=== PATIENT | female | born 1955 | race Caucasian/White ===

== ENCOUNTER 2016-12-24 09:59 | Emergency (ER) | payer OTHER ==
[~2016-12-24] VITALS: Ht 154.9 cm; Wt 72.0 kg
[~2016-12-24 09:59] MED LIST: ABILIFY15 MG PO; ABILIFY5 MG OR; ACCUPRIL5 MG OR; ADVIL200 MG OR; ALAVERT10 MG OR; ASMANEX 30220 MCG IN; ASPIRIN EC81 MG PO; ASPIRIN LOW DOS81 M2 PO; ASPIRIN325 MG PO; ATROVENT I0.5 MG/VIA IN; AZITHROMYCIN500 MG PO; CELEBREX100 M1 PO; CELEBREX200 MG PO; CELEXA20 M1 PO; CIPROFLOXACN500 MG PO; CITALOPRAM20 MG PO; COMBIVENT IN; CRESTOR10 MG PO; DARVOCET-N100 MG OR; DETROL LA4 MG PO; DETROL2 MG PO; DOXYCYCL HYC100 MG PO; DUONEB IN; DURA-NEB2000 MG; EFFEXOR XR150 MG PO; FLAGYL 500500 MG/100 PO; GUAIFENESIN400 MG OR; LATANOPROST0.005 % OU; LEVOTHYROXIN100 MCG PO; LEXAPRO20 MG PO; LORTAB 5 OR; LORTAB 7.57.5 MG PO; MOTRIN800 MG OR; MULTIVITAMI1 PO; NEXIUM40 M1 PO; NICOTINE T21 MG/PATC TD; NORCO1 TA1 PO; NYSTATIN100000 M4 TOP; OXYBUTYNIN5 MG PO; PRAVACHOL20 MG PO; PRAVASTATIN20 MG PO; PREDNISONE50 MG PO; PRILOSEC40 MG PO; PROAIR HFA IN; PROVENTIL IN; PROVENTIL0.083 % IN; REMERON7.5 MG PO; RESTORIL15 M1 PO; SPIRIVA IN; SYMBICORT1 AE1 IN; TUSSIONEX1 ML OR; ULTRAM50 M1 OR; ULTRAM50 MG OR; VITAMIN D5000 UNIT PO; ZITHROMAX250 MG OR
[2016-12-24] MEDS ORDERED: ALBUTEROL SUL0.083 % IN (10:29)
[2016-12-24 10:30] LABS: HEMATOCRIT 44.1 % (37.0-47.0); HEMOGLOBIN 15.3 g/dl (12.0-16.0); IMMATURE GRANULOCYTES 0.3 % (0.0-1.0); MEAN CELL VOLUME 92.3 fL CALC (80.0-100.0); MEAN CORPUSCULAR HGB CONC 34.7 g/L CALC (32.0-36.0); NEUT# 2.97 thou/uL (2.00-7.15); RED BLOOD COUNT 4.78 mill/uL (4.20-5.60); RED CELL DISTRI WIDTH 14.9 % (11.5-15.5)
[2016-12-24] MEDS ORDERED: ABILIFY5 MG PO (10:31)
[2016-12-24] MEDS ORDERED: RANITIDINE150 M1 PO (10:34)
[2016-12-24] MEDS ORDERED: TAMAZAPAM PO (10:36)
[2016-12-24] MEDS ORDERED: ATORVASTATIN CA80 MG PO (10:38)
[2016-12-24 10:51] LABS: ALBUMIN 4.1 g/dL (3.2-5.0); ALKALINE PHOSPHATASE 92 u/l (38-126); AMYLASE 49 u/l (30-110); ANION GAP 12 (6-22 (CALC)); BILIRUBIN, TOTAL 0.9 mg/dL (0.0-1.4); BUN 12 mg/dL (7-17); BUN/CREATININE RATIO 13 (12-20 (CALC)); CALCIUM 9.4 mg/dL (8.4-10.2); CARBON DIOXIDE 29 mmol/l (22-30); CHLORIDE 101 mmol/l (95-108); CREATININE 0.9 mg/dL (0.5-1.0); GFR > 60 ML/MIN (>=60 (CALC)); GFR FOR AFR.AMER. > 60 ML/MIN (>=60 (CALC)); GLUCOSE 123 mg/dL (65-105); LIPASE 109 u/l (23-300); POTASSIUM 3.8 mmol/l (3.5-5.1); SGOT/AST 24 u/l (14-36); SGPT/ALT 38 u/l (9-52); SODIUM 137 mmol/l (137-146); TOTAL PROTEIN 6.8 g/dL (6.3-8.2)
[2016-12-24 11:03] LABS: MYOGLOBIN 25 ng/mL (0 - 62)
[2016-12-24 12:39] LABS: URINE BILIRUBIN - DIPSTICK NEGATIVE (NEGATIVE); URINE BLOOD DIPSTICK TRACE-INTACT (NEGATIVE); URINE CLARITY CLEAR; URINE COLOR YELLOW; URINE GLUCOSE - DIPSTICK NEGATIVE (NEGATIVE); URINE KETONE NEGATIVE (NEGATIVE); URINE LEUK ESTERASE NEGATIVE (NEGATIVE); URINE NITRITE - DIPSTICK NEGATIVE (Negative); URINE PH 5.5 (4.5-8.0); URINE PROTEIN - DIPSTICK NEGATIVE (NEG-TRACE); URINE SPECIFIC GRAVITY 1.015; URINE UROBILINOGEN - DIPSTICK 0.2 E.U./dL (0.2)
[2016-12-24] MEDS ORDERED: ZITHROMAX250 MG PO (14:49)
[2016-12-24] MEDS ORDERED: MEDDOSEPAK PO (14:49)
[2016-12-24 15:41] VITALS: BP 103/66
== END 2016-12-24 15:10 | disposition home or self-care (01) | DRG 192 ==
LOC: ED 09:59
PROVIDERS: Emergency Medicine
DX: J44.1 Chronic obstructive pulmonary disease with (acute) exacerbation (principal); I10 Essential (primary) hypertension; F32.9 Major depressive disorder, single episode, unspecified; F41.9 Anxiety disorder, unspecified; M19.90 Unspecified osteoarthritis, unspecified site; E03.9 Hypothyroidism, unspecified; J45.909 Unspecified asthma, uncomplicated; F17.210 Nicotine dependence, cigarettes, uncomplicated; R07.9 Chest pain, unspecified; R06.02 Shortness of breath; R05 Cough

== ENCOUNTER 2018-03-28 08:36 | Emergency (ER) | payer MEDICAID ==
[~2018-03-28] VITALS: Ht 154.9 cm; Wt 64.0 kg
[~2018-03-28 08:36] MED LIST changes: +ABILIFY5 MG PO; +ALBUTEROL SUL0.083 % IN; +ATORVASTATIN CA80 MG PO; +MEDDOSEPAK PO; +RANITIDINE150 M1 PO; +TAMAZAPAM PO; +ZITHROMAX250 MG PO
[2018-03-28 09:15] LABS: HEMATOCRIT 39.7 % (37.0-47.0); IMMATURE GRANULOCYTES 0.2 % (0.0-5.0); MEAN CELL VOLUME 91.7 fL CALC (80.0-100.0); MEAN CORPUSCULAR HGB 29.3 pG CALC (26.0-32.0); NEUT# 3.14 thou/uL (2.00-7.15); RED BLOOD COUNT 4.33 mill/uL (4.20-5.60); RED CELL DISTRI WIDTH 13.4 % (11.5-15.5)
[2018-03-28 09:16] LABS: HEMOGLOBIN 12.7 g/dl (12.0-16.0)
[2018-03-28] MEDS ORDERED: LASIX 80 MG TAB80 M1 PO (09:25)
[2018-03-28] MEDS ORDERED: MS CONTIN30 MG PO (09:26)
[2018-03-28] MEDS ORDERED: POTASSIUM CHLO20 ME2 PO (09:26)
[2018-03-28] MEDS ORDERED: DILAUDID8 MG PO (09:26)
[2018-03-28 09:31] LABS: ALBUMIN 4.7 g/dL (3.2-5.0); ALKALINE PHOSPHATASE 102 u/l (38-126); ANION GAP 14 (6-22 (CALC)); BILIRUBIN, TOTAL 0.5 mg/dL (0.0-1.4); BUN 17 mg/dL (7-17); BUN/CREATININE RATIO 14 (12-20 (CALC)); CARBON DIOXIDE 31 mmol/l (22-30); CHLORIDE 102 mmol/l (95-108); CREATININE 1.2 mg/dL (0.5-1.0); GFR 46 ML/MIN (>=60 (CALC)); GFR FOR AFR.AMER. 55 ML/MIN (>=60 (CALC)); POTASSIUM 4.1 mmol/l (3.5-5.1); SGOT/AST 42 u/l (14-36); SODIUM 142 mmol/l (137-146); TOTAL PROTEIN 7.4 g/dL (6.3-8.2)
[2018-03-28 09:32] LABS: INTERNATIONAL NORMALIZED RATIO 0.9 RATIO (0.7-1.3); PROTHROMBIN TIME 9.7 SECONDS (9.0-12.5)
[2018-03-28] MEDS ORDERED: ZITHROMAX250 MG PO (09:48)
[2018-03-28] MEDS ORDERED: MEDDOSEPAK PO (09:48)
[2018-03-28 10:22] VITALS: BP 145/77
== END 2018-03-28 10:32 | disposition home or self-care (01) ==
LOC: ED 08:36
PROVIDERS: Emergency Medicine
DX: J06.9 Acute upper respiratory infection, unspecified (principal); J44.1 Chronic obstructive pulmonary disease with (acute) exacerbation; R06.02 Shortness of breath

== ENCOUNTER 2018-04-04 18:09 | Emergency (ER) | payer OTHER ==
[~2018-04-04] VITALS: Ht 154.9 cm; Wt 75.0 kg
[~2018-04-04 18:09] MED LIST changes: +DILAUDID8 MG PO; +LASIX 80 MG TAB80 M1 PO; +MS CONTIN30 MG PO; +POTASSIUM CHLO20 ME2 PO
[2018-04-04 18:57] LABS: HEMATOCRIT 39.6 % (37.0-47.0); HEMOGLOBIN 12.8 g/dl (12.0-16.0); IMMATURE GRANULOCYTES 0.3 % (0.0-5.0); MEAN CELL VOLUME 91.7 fL CALC (80.0-100.0); MEAN CORPUSCULAR HGB 29.6 pG CALC (26.0-32.0); MEAN CORPUSCULAR HGB CONC 32.3 g/L CALC (32.0-36.0); NEUT# 3.52 thou/uL (2.00-7.15); RED BLOOD COUNT 4.32 mill/uL (4.20-5.60)
[2018-04-04 19:10] LABS: ALBUMIN 4.5 g/dL (3.2-5.0); ALKALINE PHOSPHATASE 113 u/l (38-126); ANION GAP 14 (6-22 (CALC)); BILIRUBIN, TOTAL 0.7 mg/dL (0.0-1.4); BUN 19 mg/dL (7-17); BUN/CREATININE RATIO 18 (12-20 (CALC)); CARBON DIOXIDE 31 mmol/l (22-30); CHLORIDE 98 mmol/l (95-108); CREATININE 1.1 mg/dL (0.5-1.0); GFR 51 ML/MIN (>=60 (CALC)); GFR FOR AFR.AMER. > 60 ML/MIN (>=60 (CALC)); SGOT/AST 33 u/l (14-36); SODIUM 138 mmol/l (137-146); TOTAL PROTEIN 6.7 g/dL (6.3-8.2)
[2018-04-04 19:22] LABS: MYOGLOBIN 124 ng/mL (0 - 62)
[2018-04-04] MEDS ORDERED: LEVAQUIN500 MG PO (20:08)
[2018-04-04] MEDS ORDERED: MEDDOSEPAK PO (20:08)
[2018-04-04 20:28] VITALS: BP 113/62
== END 2018-04-04 20:28 | disposition home or self-care (01) ==
LOC: ED 18:09
PROVIDERS: Emergency Medicine
DX: J44.1 Chronic obstructive pulmonary disease with (acute) exacerbation (principal); K21.9 Gastro-esophageal reflux disease without esophagitis; E03.9 Hypothyroidism, unspecified; F43.10 Post-traumatic stress disorder, unspecified; F32.9 Major depressive disorder, single episode, unspecified; F41.9 Anxiety disorder, unspecified; Z99.81 Dependence on supplemental oxygen; R06.02 Shortness of breath; R05 Cough

== ENCOUNTER 2018-05-08 13:09 | Observation (INO) | payer OTHER ==
[~2018-05-08] VITALS: Ht 154.9 cm; Wt 79.4 kg
[~2018-05-08 13:09] MED LIST changes: +LEVAQUIN500 MG PO
--- NOTE | 2018-05-08 13:09 | NUR ---
TO ROOM 9 VIA W/C. FAMILY AT BEDSIDE
[2018-05-08 13:57] LABS: IMMATURE GRANULOCYTES 0.4 % (0.0-5.0); MEAN CELL VOLUME 91.4 fL CALC (80.0-100.0); MEAN CORPUSCULAR HGB 28.3 pG CALC (26.0-32.0); MEAN CORPUSCULAR HGB CONC 30.9 g/L CALC (32.0-36.0); NEUT# 3.53 thou/uL (2.00-7.15); RED BLOOD COUNT 3.61 mill/uL (4.20-5.60); RED CELL DISTRI WIDTH 15.4 % (11.5-15.5)
--- NOTE | 2018-05-08 14:09 | NUR ---
PT RESTING IN NO ACUTE DISTRESS. VSS. PT STATES SHE IS BREATHING MUCH BETTER
[2018-05-08 14:10] LABS: HEMOGLOBIN 10.2 g/dl (12.0-16.0)
[2018-05-08 14:12] LABS: ANION GAP 13 (6-22 (CALC)); BUN 15 mg/dL (7-17); BUN/CREATININE RATIO 12 (12-20 (CALC)); CARBON DIOXIDE 30 mmol/l (22-30); CHLORIDE 102 mmol/l (95-108); CREATININE 1.2 mg/dL (0.5-1.0); GFR 46 ML/MIN (>=60 (CALC)); GFR FOR AFR.AMER. 55 ML/MIN (>=60 (CALC)); POTASSIUM 3.8 mmol/l (3.5-5.1); SODIUM 141 mmol/l (137-146)
--- NOTE | 2018-05-08 14:49 | NUR ---
PT RESTING WITH HOB ELEVATED ON O2@2LPM VIA NC. PT SITTING UP DRINKING SODA IN NO DISTRESS AT THIS TIME.VSS
--- NOTE | 2018-05-08 15:04 | NUR ---
PT MAINTAINED IN NO ACUTE DISTRESS.VSS. O2@2LPM VIA NC. DENIES CP OR SOB
--- NOTE | 2018-05-08 16:04 | NUR ---
PT IN NO DISTRESS, VSS. PT DENIES COMPLAINTS. VSS. CONTINUES ON 02@2LPM VIA [place]
--- NOTE | 2018-05-08 16:55 | NUR ---
CALLED REPORT TO MEAGHAN RAYMUNDO MS2
[2018-05-08 17:20] VITALS: BP 128/81
--- NOTE | 2018-05-08 17:33 | NUR ---
ASSESSMENT DONE . TELE IN PLACE READING SR 76 PER ED. 02 AT 2L VIA RI. SAFETY PRECAUTIONS REINFORCED AND CALL LIGHT IN REACH.
[2018-05-08 19:00] VITALS: BP 135/78
--- NOTE | 2018-05-08 19:54 | NUR ---
PT. SITTING UP IN BED WITH EXERTIONAL SOB; PT. REQUESTING NEB TX'S; WILL CALL MD FOR FURTHER ORDERS; O2 INFUSING PER NC @2LITERS/MIN PER NC; ASSESSMENT COMPLETED; PO FLUIDS OFFERED; EDEMA NOTED TO BLE AND ELEVATED ONTO PILLOW; ENCOURAGED TO CALL FOR ANY NEEDS; CALL LIGHT IS IN REACH; WILL CONTINUE TO MONITOR.
--- NOTE | 2018-05-08 20:45 | NUR ---
SPOKE TO DR. GONZALEZ AND NOTIFIED HIM OF PT'S REQUESTS FOR NEB TX'S AND OF THERE BEING NO MORE ANTIBIOTICS OR STEROIDS TO BE GIVEN ONLY ONES IN ER; NEW ORDERS RECEIVED AND TO BE CARRIED OUT;
--- NOTE | 2018-05-08 22:24 | NUR ---
PT. SITTING UP IN BED WITH O2 INFUSING PER NC; C/O RLE MATTHEWS PAIN; SWELLING UNCHANGED FROM ASSESSMENT TO BLE; APPLIED B[place] HOSE TO BLE AT THIS TIME AND ELEVATED ONTO PILLOW; PULSES PRESENT; INSTRUCTED TO CALL FOR ANY NEEDS;VOICES NO CONCERNS; CALL LIGHT IS IN REACH.
[2018-05-09 00:02] VITALS: BP 112/78
--- NOTE | 2018-05-09 00:27 | NUR ---
PT. C/O BACK PAIN ; MEDICATED WITH ORDERED DILAUDID PO PER ORDER; PT., REPORTS THAT PAIN WAS RELIEVED TO LLE AFTER BIB[place]NA HOSE PLACED; DENIES FURTHER NEEDS; CALL LIGHT IS IN REACH.
--- NOTE | 2018-05-09 03:35 | NUR ---
PT. RESTING IN BED WITH EYES CLOSED; RESP EVEN AND UNLABORED; WILL CONTINUE TO MONITOR.
[2018-05-09 04:42] VITALS: BP 118/75
[2018-05-09 04:44] LABS: HEMATOCRIT 33.6 % (37.0-47.0); HEMOGLOBIN 10.3 g/dl (12.0-16.0); IMMATURE GRANULOCYTES 0.4 % (0.0-5.0); MEAN CELL VOLUME 90.1 fL CALC (80.0-100.0); MEAN CORPUSCULAR HGB 27.6 pG CALC (26.0-32.0); MEAN CORPUSCULAR HGB CONC 30.7 g/L CALC (32.0-36.0); NEUT# 4.06 thou/uL (2.00-7.15); RED BLOOD COUNT 3.73 mill/uL (4.20-5.60)
[2018-05-09 05:17] LABS: ALBUMIN 3.7 g/dL (3.2-5.0); ALKALINE PHOSPHATASE 91 u/l (38-126); ANION GAP 15 (6-22 (CALC)); BILIRUBIN, TOTAL 0.3 mg/dL (0.0-1.4); BUN 14 mg/dL (7-17); BUN/CREATININE RATIO 14 (12-20 (CALC)); CARBON DIOXIDE 26 mmol/l (22-30); CHLORIDE 101 mmol/l (95-108); GFR 57 ML/MIN (>=60 (CALC)); GFR FOR AFR.AMER. > 60 ML/MIN (>=60 (CALC)); LIPASE 81 u/l (23-300); POTASSIUM 3.8 mmol/l (3.5-5.1); SGOT/AST 34 u/l (14-36); SODIUM 138 mmol/l (137-146); TOTAL PROTEIN 5.7 g/dL (6.3-8.2)
[2018-05-09 05:37] LABS: AMYLASE < 30 u/l (30-110)
--- NOTE | 2018-05-09 06:32 | NUR ---
PT. C/O 09/05 BACK PAIN AND MILD PAIN TO LLE; MEDICATED WITH ORDERED PO DILAUDID; WILL REASSESS; CALL LIGHT IS IN REACH; WILL CONTINUE TO MONITOR.
[2018-05-09 07:50] VITALS: BP 119/71
--- NOTE | 2018-05-09 08:35 | NUR ---
ASSESSMENT DONE .TELE IN PLACE. PT IS A&O X3. 02 2L VIA NC. 20 RAC THAT APPEARS HEALTHY. PT DENIES ANY NEEDS AT THIS TIME. SAFETY PRECAUTIONS REINFORCED AND CALL LIGHT IN REACH.
[2018-05-09 12:00] VITALS: BP 112/64
--- NOTE | 2018-05-09 12:40 | NUR ---
DR. GONZALEZ AT BEDSIDE TO ASESS PT AND DISCUSS POC. PT VERBALIZED UNDERSTANDING. PT STATED PAIN IN BACK 10/06. PT DENIES ANY OTHER NEEDS AT THIS TIME. CALL LIGHT IN REACH.
[2018-05-09 15:33] VITALS: BP 108/72
--- NOTE | 2018-05-09 16:29 | NUR ---
PT TALKING IN HER CELL PHONE. PT DENIES ANY NEEDS AT THIS TIME. CALL LIGHT IN REACH.
[2018-05-09 17:23] LABS: URINE BILIRUBIN - DIPSTICK NEGATIVE (NEGATIVE); URINE BLOOD DIPSTICK NEGATIVE (NEGATIVE); URINE COLOR YELLOW; URINE GLUCOSE - DIPSTICK NEGATIVE (NEGATIVE); URINE KETONE NEGATIVE (NEGATIVE); URINE LEUK ESTERASE NEGATIVE (Negative); URINE NITRITE - DIPSTICK NEGATIVE (Negative); URINE PROTEIN - DIPSTICK NEGATIVE (NEG-TRACE); URINE SPECIFIC GRAVITY <=1.005; URINE UROBILINOGEN - DIPSTICK 0.2 E.U./dL (0.2)
[2018-05-09 17:25] LABS: URINE CLARITY CLEAR
--- NOTE | 2018-05-09 19:52 | NUR ---
PT. C/O BACK PAIN; MEDICATED WITH ORDERED PRN PO DILAUDID; WILL REASSESS; ASSESSMENT COMPLETED; IV SITE PATENT AND SL; FLUSHES WELL; PO FLUIDS OFFERED; O2 INFUSING PER NC PER ORDER; PT. INSTRUCTED TO CALL FOR ANY NEEDS; CALL LIGHT IS IN REACH;
--- NOTE | 2018-05-09 22:05 | NUR ---
PT. SITTING UP IN BED; O2 INFUSING PER NC; PT. REQUESTS PRN RESTORIL; MEDICATED PER ORDER;
[2018-05-10] VITALS (7 sets, daily range): BP systolic 106–125; BP diastolic 60–78
--- NOTE | 2018-05-10 01:15 | NUR ---
PT. RESTING IN BED WITH EYES CLOSED; RESP EVEN AND UNLABORED; CALL LIGHT IS IN REACH.
--- NOTE | 2018-05-10 02:57 | NUR ---
PT. MEDICATED FOR BACK PAIN WITH ORDERED PRN PO DILAUDID; WILL REASSESS; PO FLUIDS OFFERED; COMMODE EMPTIED; ENCOURAGED TO CALL FOR ANY NEEDS; CALL LIGHT IS IN REACH; WILL CONTINUE TO MONITOR.
--- NOTE | 2018-05-10 05:47 | NUR ---
SCHED ABT HUNG; FRESH WATER GIVEN; DENIES NEEDS; CALL LIGHT IS IN REACH.
[2018-05-10 06:31] LABS: HEMATOCRIT 33.4 % (37.0-47.0); HEMOGLOBIN 10.5 g/dl (12.0-16.0); IMMATURE GRANULOCYTES 0.5 % (0.0-5.0); MEAN CORPUSCULAR HGB 28.6 pG CALC (26.0-32.0); MEAN CORPUSCULAR HGB CONC 31.4 g/L CALC (32.0-36.0); NEUT# 6.49 thou/uL (2.00-7.15); RED BLOOD COUNT 3.67 mill/uL (4.20-5.60); RED CELL DISTRI WIDTH 15.6 % (11.5-15.5)
[2018-05-10 06:44] LABS: ALKALINE PHOSPHATASE 91 u/l (38-126); ANION GAP 12 (6-22 (CALC)); BILIRUBIN, TOTAL 0.4 mg/dL (0.0-1.4); BUN 20 mg/dL (7-17); BUN/CREATININE RATIO 23 (12-20 (CALC)); CARBON DIOXIDE 28 mmol/l (22-30); CHLORIDE 102 mmol/l (95-108); CREATININE 0.9 mg/dL (0.5-1.0); GFR > 60 ML/MIN (>=60 (CALC)); GFR FOR AFR.AMER. > 60 ML/MIN (>=60 (CALC)); MAGNESIUM 2.3 mg/dL (1.6-2.3); SGOT/AST 29 u/l (14-36); SODIUM 137 mmol/l (137-146); TOTAL PROTEIN 6.1 g/dL (6.3-8.2)
[2018-05-10 06:47] LABS: POTASSIUM 4.6 mmol/l (3.5-5.1)
--- NOTE | 2018-05-10 08:15 | NUR ---
ASSESSMENT IS COMPLETED; IV SITE IS FREE FROM REDNESS OR EDEMA. HR IS REG, PULSES ARE STRONG X4, ABD IS SOFT WITH ACTIVE BS.BREATH SOUNDS ARE CLEAR BILATERALLY. O2 @ 2LITERS WITH NC. CONTINUE TO OSEBRVE AND MONITOR
--- NOTE | 2018-05-10 12:30 | NUR ---
PT IS RELAXING IN BED WITH NO DISTRESS NOTED. HAS SOME AUDIBLE WHEEZING ON EXERTION.
--- NOTE | 2018-05-10 16:15 | NUR ---
PT IS RELAXING IN BED WITH NO DISTRESS NOTED. IV SITE IS FREE FROM REDNESS OR EDEMA.
--- NOTE | 2018-05-10 19:12 | NUR ---
PT. SITTING UP IN BED WATCHING TV; O2 INFUSING PER NC PER ORDER; ENCOURAGED TO CALL FOR ANY NEEDS; PT. C/O BACK SANTIAGO 12/06; MEDICATED WITH ORDERED DILAUDID PO; WILL REASSESS; DENIES FURTHER NEEDS; CALL LIGHT IS IN REACH; WILL CONTINUE TO MONITOR.
--- NOTE | 2018-05-10 22:14 | NUR ---
PT. SITTING UP IN BED WATCHING TV; MEDICATED WITH ORDERED PRN RESTORIL PER PTS REQUEST; DENIES FURTHER NEEDS; CALL LIGHT IS IN REACH.
--- NOTE | 2018-05-11 02:29 | NUR ---
PT. C/O BACK PAIN ; MEDICATED WITH ORDERED DILAUDID PO; ICE CHIPS PROVIDED; COMMODE EMPTIED; PT. DENIES FURTHER NEEDS; CALL LIGHT IS IN REACH; WILL CONTINUE TO MONITOR.
--- NOTE | 2018-05-11 04:25 | NUR ---
IV SITE SLIGHTLY LEAKING WHEN FLUSHING; REMOVED AT THIS TIME; CATHETER TIP INTACT; NEW IV SITE STARTED TO LH #22 GAUGE AND AM LABS OBTAINED; COFFEE PROVIDED PER PT'S REQUEST; VOICES NO CONCERNS; CALL LIGHT IS IN REACH.
[2018-05-11 04:35] VITALS: BP 122/79
[2018-05-11 05:33] LABS: HEMATOCRIT 33.6 % (37.0-47.0); HEMOGLOBIN 10.6 g/dl (12.0-16.0); IMMATURE GRANULOCYTES 0.8 % (0.0-5.0); MEAN CELL VOLUME 90.8 fL CALC (80.0-100.0); MEAN CORPUSCULAR HGB 28.6 pG CALC (26.0-32.0); MEAN CORPUSCULAR HGB CONC 31.5 g/L CALC (32.0-36.0); NEUT# 6.48 thou/uL (2.00-7.15); RED BLOOD COUNT 3.7 mill/uL (4.20-5.60); RED CELL DISTRI WIDTH 15.7 % (11.5-15.5)
[2018-05-11 05:40] LABS: ALBUMIN 3.7 g/dL (3.2-5.0); ALKALINE PHOSPHATASE 79 u/l (38-126); ANION GAP 11 (6-22 (CALC)); BILIRUBIN, TOTAL 0.3 mg/dL (0.0-1.4); BUN 19 mg/dL (7-17); BUN/CREATININE RATIO 28 (12-20 (CALC)); CARBON DIOXIDE 26 mmol/l (22-30); CHLORIDE 104 mmol/l (95-108); CREATININE 0.7 mg/dL (0.5-1.0); GFR > 60 ML/MIN (>=60 (CALC)); GFR FOR AFR.AMER. > 60 ML/MIN (>=60 (CALC)); MAGNESIUM 2.2 mg/dL (1.6-2.3); POTASSIUM 4.2 mmol/l (3.5-5.1); SGOT/AST 26 u/l (14-36); SODIUM 137 mmol/l (137-146); TOTAL PROTEIN 5.8 g/dL (6.3-8.2)
[2018-05-11 07:25] VITALS: BP 154/91
--- NOTE | 2018-05-11 07:25 | NUR ---
ASSESSMENT IS COMPLETED: IV SITE IS FREE FROM REDNESS OR EDEMA. BREATH SOUNDS ARE DIMINSHED. HR IS REG, PULSES ARE STRONG X4, ABD IS SOFT WITH ACTIVE BS. TELE MONITOR IN PLACE. CALL HILLIARD WITHIN REACH. CONTINUE TO OBSERVE AND MONITOR.
[2018-05-11 11:08] VITALS: BP 120/58
--- NOTE | 2018-05-11 12:00 | NUR ---
PT IS RELAXING IN BED WITH NO DISTRESS NOTED. IV SITE IS FREE FROM REDNESS OR EDEMA. TELE MONITOR IN PLACE. CONTINUE TO OSBERVE AND MONITOR.
[2018-05-11] MEDS ORDERED: BUMETANIDE1 MG PO (14:12)
[2018-05-11] MEDS ORDERED: DOXYCYCL HYC100 MG PO (14:13)
--- NOTE | 2018-05-11 14:30 | NUR ---
IV FLUIDS WERE 111
--- NOTE | 2018-05-11 14:47 | NUR ---
PT RECEIVED DISCHARGE INSTRUCTIONS. IV SITE DISCONITNUED CATHETER INTACT. NO REDNESS OR EDEMA.VERBALIZED UNDERSTANDING. Discharge instructions given. Patient verbalizes understanding of same. Discharged in stable condition via Wheelchair to Home with family. All belongings sent with pt.
--- NOTE | 2018-05-11 14:50 | NUR ---
Discharge instructions given. Patient verbalizes understanding of same. Discharged in stable condition via Wheelchair to Home with family. All belongings sent with pt.
== END 2018-05-11 14:46 | disposition home or self-care (01) ==
LOC: ED 13:09 → ED-I 14:39 → ED 15:12 → MS2 15:13
PROVIDERS: Family Medicine; ADMIT Internal Medicine Nephrology; ATTEND Internal Medicine Nephrology
DX: J44.1 Chronic obstructive pulmonary disease with (acute) exacerbation (principal); I11.0 Hypertensive heart disease with heart failure; I50.31 Acute diastolic (congestive) heart failure; J96.00 Acute respiratory failure, unspecified whether with hypoxia or hypercapnia; E78.5 Hyperlipidemia, unspecified; K21.9 Gastro-esophageal reflux disease without esophagitis; E03.9 Hypothyroidism, unspecified; F43.10 Post-traumatic stress disorder, unspecified; F32.9 Major depressive disorder, single episode, unspecified; F41.9 Anxiety disorder, unspecified; F17.200 Nicotine dependence, unspecified, uncomplicated
CPT/HCPCS: G0378

== ENCOUNTER 2019-01-27 10:46 | Inpatient (IN) | payer OTHER ==
[2019-01-27] VITALS (8 sets, daily range): BP systolic 98–172; BP diastolic 67–101
[~2019-01-27] VITALS: Ht 154.9 cm; Wt 74.6 kg
[~2019-01-27 10:46] MED LIST changes: +BUMETANIDE1 MG PO
--- NOTE | 2019-01-27 10:54 | NUR ---
PT TO ROOM PER EMS
[2019-01-27 11:27] LABS: HEMATOCRIT 39.5 % (37.0-47.0); HEMOGLOBIN 11.9 g/dl (12.0-16.0); IMMATURE GRANULOCYTES 0.3 % (0.0-5.0); MEAN CELL VOLUME 86.2 fL CALC (80.0-100.0); MEAN CORPUSCULAR HGB CONC 30.1 g/L CALC (32.0-36.0); NEUT# 4.79 thou/uL (2.00-7.15); RED BLOOD COUNT 4.58 mill/uL (4.20-5.60); RED CELL DISTRI WIDTH 17.7 % (11.5-15.5)
[2019-01-27 11:36] LABS: ANION GAP 15 (6-22 (CALC)); BUN 10 mg/dL (8-23); BUN/CREATININE RATIO 11 (12-20 (CALC)); CARBON DIOXIDE 26 mmol/l (22-30); CHLORIDE 103 mmol/l (95-108); CREATININE 0.9 mg/dL (0.5-1.0); GFR > 60 ML/MIN (>=60 (CALC)); GFR FOR AFR.AMER. > 60 ML/MIN (>=60 (CALC)); SODIUM 138 mmol/l (137-146)
--- NOTE | 2019-01-27 11:50 | NUR ---
PT TOLERATING BIPAP, MONITORING DEVICES IN PLACE; IV LEVAQUIN INFUSING; PT DENIES ANY NEEDS AT THIS TIME; VSS; WILL CONTINUE TO MONITOR
--- NOTE | 2019-01-27 12:47 | NUR ---
PT MEDICATED HYPERKALEMIA PER MAR, PT TOLERATED WELL; BIPAP CONTINUED; PT DENIES ANY DISCOMFORT OR PAIN AT THIS
--- NOTE | 2019-01-27 13:30 | NUR ---
PT RESTING ON STRETCHER BIPAP IN PLACE; PT TOLERATING WELL; VSS; WILL CONTINUE TO MONITOR
--- NOTE | 2019-01-27 14:30 | NUR ---
PT RESTING ON STRETCHER; BIPAP IN PLACE; VSS; DENIES ANY NEEDS; WILL CONTINUE TO MONITOR
--- NOTE | 2019-01-27 15:25 | NUR ---
REPORT CALLED TO MEAGHAN BRIDGES
--- NOTE | 2019-01-27 15:50 | NUR ---
PT ADMITTED TO ICU BED 5 FROM ED, TRANSPORTED VIA STRETCHER, PT TRANSFERRED SELF FROM STRETCHER TO BED. PT DENIES CP. PT SOB WITH EXERTION, SA02@93% ON 02@2LPM VIA NC. LS WHEEZING THROUGHOUT. ABDOMEN DISTENDED, FIRM, NON-TENDER. LBM 01-26-19. BSX4 ACTIVE. 20G EMS@LAC/SL, NO S/S OF INFILTRATE AT SITE NOTED AT THIS TIME. PT REMAINS ON DROPLET PRECAUTIONS FOR FLU B. PT ORIENTED TO UNIT, ROOM, CALL LIGHT. WILL MONITOR.
--- NOTE | 2019-01-27 16:05 | NUR ---
Admission Note Report Given to: MEAGHAN BRIDGES Transported by: Wheelchair X Stretcher Transported with: X Nurse Transporter X Patent IV X O2 X Supervisor [employer]
--- NOTE | 2019-01-27 16:30 | NUR ---
PT DAUGHTER ARRIVED AT BEDSIDE.
--- NOTE | 2019-01-27 17:00 | NUR ---
RT AT BEDSIDE FOR TX, PLACE HUMIDIFIER.
--- NOTE | 2019-01-27 17:16 | NUR ---
DIETARY ON UNIT DINNER TRAY SET UP.
--- NOTE | 2019-01-27 18:27 | NUR ---
PT RESTING IN BED, EYES CLOSED. OFFERS NO COMPLAINTS AT THIS TIME. CALL LIGHT IN REACH. WILL MONITOR
--- NOTE | 2019-01-27 18:50 | NUR ---
REPORT RECEIVED FROM MEAGHAN BRIDGES. PT SITTING UP IN BED COLORING; ALERT AND ORIENTED. C/O SOME MILD PAIN TO ANTERIOR LEFT MATTHEWS AND MID BACK. RESPIRATIONS EVEN AND UNLABORED ON OXYGEN 2L VIA NC; WHEEZING THROUGOUT LUNGS. PT STATES THAT HER BREATHING IS MUCH BETTER. PLAN OF CARE REVIEWED. PT ENCOURAGED TO VERBALIZE CONCERNS. STATES UNDERSTANDING. SAFETY MEASURES IN PLACE. CALL LIGHT WITHIN REACH.
--- NOTE | 2019-01-27 21:30 | NUR ---
SPUTUM SPECIMEN OBTAINED AND SENT TO LAB. PT TOOK PM MEDICATIONS WITHOUT DIFFICULY INCLUDING RESTORIL. ASKING FOR COKE. NO OTHER REQUESTS OR CONCERNS AT THIS TIME.
[2019-01-28] VITALS (13 sets, daily range): BP systolic 92–143; BP diastolic 63–92
--- NOTE | 2019-01-28 00:17 | NUR ---
PT ASLEEP AT THIS TIME WITH NO SIGNS OF DISTRESS. RESPIRATIONS EVEN AND UNLABORED ON OXYGEN. REMAINS ON DROPLET PRECAUTIONS FOR FLU. REPOSITIONING SELF IN BED AND USES CALL LIGHT PRN FOR ASSISTANCE. CALL LIGHT WITHIN REACH.
--- NOTE | 2019-01-28 02:58 | NUR ---
NO CHANGES IN CONDITION THROUGHOUT THE NIGHT. VSS.
--- NOTE | 2019-01-28 05:40 | NUR ---
PURWIK CATHETER UNSUCCESSFUL; LINENS SOILED WITH URINE; FULL LINEN CHANGE AND PT ASSITED WITH PARTIAL BATH. UP TO BS TO VOID 900ML OF CLEAR YELLOW URINE; SPECIMEN SENT TO LAB. PT SOB WITH MODERATE WHEEZING ON EXERTION. ONLY REQUEST AT THIS TIME IS FOR COFFEE. CALL LIGHT WITHIN REACH.
--- NOTE | 2019-01-28 05:49 | NUR ---
RT AT BEDSIDE FOR BREATHING TREATMENT.
[2019-01-28 06:10] LABS: URINE BILIRUBIN - DIPSTICK NEGATIVE (NEGATIVE); URINE BLOOD DIPSTICK TRACE-LYSED (NEGATIVE); URINE COLOR YELLOW; URINE GLUCOSE - DIPSTICK NEGATIVE (NEGATIVE); URINE KETONE NEGATIVE (NEGATIVE); URINE LEUK ESTERASE NEGATIVE (NEGATIVE); URINE NITRITE - DIPSTICK NEGATIVE (Negative); URINE PH 5.5 (4.5-8.0); URINE PROTEIN - DIPSTICK NEGATIVE (NEG-TRACE); URINE SPECIFIC GRAVITY 1.015; URINE UROBILINOGEN - DIPSTICK 0.2 E.U./dL (0.2)
--- NOTE | 2019-01-28 07:00 | NUR ---
PT SITTING UP IN BED COLORING. PT IS ALERT AND ORIENTED X3. SHIFT ASSESSMENT COMPLETED AT THIS TIME. IV PATENT X1. CALL LIGHT IN REACH. WILL CONTINUE TO MONITOR.
--- NOTE | 2019-01-28 07:30 | NUR ---
PT SET UP FOR AM MEAL.
--- NOTE | 2019-01-28 07:45 | NUR ---
LAB AT BEDSIDE AT THIS TIME.
[2019-01-28 08:05] LABS: HEMATOCRIT 38.5 % (37.0-47.0); HEMOGLOBIN 11.7 g/dl (12.0-16.0); IMMATURE GRANULOCYTES 0.3 % (0.0-5.0); MEAN CELL VOLUME 85.9 fL CALC (80.0-100.0); MEAN CORPUSCULAR HGB 26.1 pG CALC (26.0-32.0); MEAN CORPUSCULAR HGB CONC 30.4 g/L CALC (32.0-36.0); NEUT# 4.88 thou/uL (2.00-7.15); RED BLOOD COUNT 4.48 mill/uL (4.20-5.60); RED CELL DISTRI WIDTH 17.4 % (11.5-15.5)
--- NOTE | 2019-01-28 08:30 | NUR ---
DR TONEY AT BEDSIDE AT THIS TIME
[2019-01-28 08:39] LABS: ALKALINE PHOSPHATASE 111 u/l (38-126); ANION GAP 15 (6-22 (CALC)); BILIRUBIN, TOTAL 0.4 mg/dL (0.0-1.4); BUN 16 mg/dL (8-23); BUN/CREATININE RATIO 25 (12-20 (CALC)); CARBON DIOXIDE 26 mmol/l (22-30); CHLORIDE 101 mmol/l (95-108); CREATININE 0.7 mg/dL (0.5-1.0); GFR > 60 ML/MIN (>=60 (CALC)); GFR FOR AFR.AMER. > 60 ML/MIN (>=60 (CALC)); POTASSIUM 4.8 mmol/l (3.5-5.1); SGOT/AST 28 u/l (9-36); SODIUM 136 mmol/l (137-146); TOTAL PROTEIN 6.7 g/dL (6.3-8.2)
--- NOTE | 2019-01-28 10:00 | NUR ---
PT SITTING UP IN BED COLORING. RESP ARE EVEN AND UNLABORED. NO DISTRESS NOTED. CALL LIGHT IN REACH. WILL CONTINUE TO MONITOR.
--- NOTE | 2019-01-28 10:26 | NUR ---
REQUESTED PATIENT TO BRING IN ABILIFY FROM HOME. PT STATES DAUGHTER WILL BRING IT IN
--- NOTE | 2019-01-28 11:30 | NUR ---
PT SET UP FOR NOON MEAL
--- NOTE | 2019-01-28 12:01 | NUR ---
PT SITTING UP IN BED WATCHING TV AND COLORING. RESP ARE EVEN AND UNLABORED.NO DISTRESS NOTED. CALL LIGHT IN REACH. WILL CONTINUE TO MONITOR
--- NOTE | 2019-01-28 14:18 | NUR ---
PT RESTING IN BED AWAKE WATCHING TV AND COLORING. RESP ARE EVEN AND UNLABORED. NO DISTRESS NOTED. CALL LIGHT IN REACH. WILL CONTINUE TO MONITOR.
--- NOTE | 2019-01-28 16:00 | NUR ---
REMOVED EMS IV STARTED #20 LFA. PT TOLERATED WELL.
--- NOTE | 2019-01-28 19:00 | NUR ---
awake. writing. denies resp diff. o2 cont per nc. campus monitor shows sinus rhythm hr 99. #20 lfa saline lock. po fluids taken well. voids per bsc. fall & droplet precautions cont.
--- NOTE | 2019-01-28 22:00 | NUR ---
up to bsc. krista well. no resp distress.
--- NOTE | 2019-01-29 00:01 | NUR ---
eyes closed. no distress. buggyman shows sinus rhythm hr76.
[2019-01-29 01:00] VITALS: BP 116/74
--- NOTE | 2019-01-29 02:30 | NUR ---
up to bsc. krista well.
[2019-01-29 03:00] VITALS: BP 119/73
--- NOTE | 2019-01-29 04:00 | NUR ---
resting quietly. resps even & unlabored. no apparent distress. o2 cont.
--- NOTE | 2019-01-29 05:43 | NUR ---
lab here. blood drawn.
[2019-01-29 07:00] VITALS: BP 118/76
[2019-01-29 07:02] LABS: ANION GAP 13 (6-22 (CALC)); BUN 20 mg/dL (8-23); BUN/CREATININE RATIO 27 (12-20 (CALC)); CARBON DIOXIDE 25 mmol/l (22-30); CHLORIDE 103 mmol/l (95-108); CREATININE 0.8 mg/dL (0.5-1.0); GFR > 60 ML/MIN (>=60 (CALC)); GFR FOR AFR.AMER. > 60 ML/MIN (>=60 (CALC)); POTASSIUM 4.7 mmol/l (3.5-5.1); SODIUM 136 mmol/l (137-146)
--- NOTE | 2019-01-29 07:30 | NUR ---
PT RESTING IN BED AWAKE. PT IS ALERT AND ORIENTED X3. SHIFT ASSESSMENT COMPLETED. IV PATENT X1. CALL LIGHT IN REACH. WILL CONTINUE TO MONITOR.
--- NOTE | 2019-01-29 07:40 | NUR ---
PT SET UP FOR AM MEAL
--- NOTE | 2019-01-29 08:20 | NUR ---
DR TONEY AT BEDSIDE AT THIS TIME
[2019-01-29] MEDS ORDERED: TAM75CAP PO (08:29)
[2019-01-29] MEDS ORDERED: LEVAQUIN750 MG PO (08:29)
[2019-01-29] MEDS ORDERED: PREDNISONE10 MG PO (08:29)
[2019-01-29 09:00] VITALS: BP 132/80
--- NOTE | 2019-01-29 10:00 | NUR ---
PT SITTING UP IN BED AWAKE. RESP ARE EVEN AND UNLABORED. NO DISTRESS NOTED. CALL LIGHT IN REACH. WILL CONTINUE TO MONITOR.
--- NOTE | 2019-01-29 11:00 | NUR ---
IV site discontinued, cath intact. No edema , no redness, voices no discomfort.
--- NOTE | 2019-01-29 11:50 | NUR ---
DISCHARGE INSTRUCTIONS REVIEWED WITH PATIENT. PATIENT VERBALIZED UNDERSTANDING.
--- NOTE | 2019-01-29 12:47 | NUR ---
Discharge instructions given. Patient verbalizes understanding of same. Discharged in stable condition via Wheelchair to Home with family. All belongings sent with pt.
== END 2019-01-29 12:47 | disposition home or self-care (01) | DRG 190 ==
LOC: ED 10:46 → ED-I 12:44 → ED 12:54 → ICU 12:55
PROVIDERS: Family Medicine; Internal Medicine; ADMIT Internal Medicine; ATTEND Internal Medicine
PROC: 5A09357 Assistance with Respiratory Ventilation, Less than 24 Consecutive Hours, Continuous Positive Airway Pressure (ICD-10-PCS; 2019-01-27)
PROC: 3E0234Z Introduction of Serum, Toxoid and Vaccine into Muscle, Percutaneous Approach (ICD-10-PCS; principal; 2019-01-29)
DX: J44.1 Chronic obstructive pulmonary disease with (acute) exacerbation (principal); J10.00 Influenza due to other identified influenza virus with unspecified type of pneumonia; J96.10 Chronic respiratory failure, unspecified whether with hypoxia or hypercapnia; I50.30 Unspecified diastolic (congestive) heart failure; Z99.81 Dependence on supplemental oxygen; E87.5 Hyperkalemia; E03.9 Hypothyroidism, unspecified; F32.9 Major depressive disorder, single episode, unspecified; F41.9 Anxiety disorder, unspecified; G89.29 Other chronic pain; Z23 Encounter for immunization

== ENCOUNTER 2019-10-02 15:22 | Observation (INO) | payer OTHER ==
[~2019-10-02] VITALS: Ht 154.9 cm; Wt 79.0 kg
[~2019-10-02 15:22] MED LIST changes: +LEVAQUIN750 MG PO; +PREDNISONE10 MG PO; +TAM75CAP PO
[2019-10-02 17:26] LABS: HEMOGLOBIN 10.4 g/dl (12.0-16.0); IMMATURE GRANULOCYTES 0.2 % (0.0-5.0); MEAN CELL VOLUME 82.1 fL CALC (80.0-100.0); MEAN CORPUSCULAR HGB 25.9 pG CALC (26.0-32.0); MEAN CORPUSCULAR HGB CONC 31.5 g/dL CAL (32.0-36.0); NEUT# 3.7 thou/uL (2.00-7.15); RED BLOOD COUNT 4.02 mill/uL (4.20-5.60); RED CELL DISTRI WIDTH 14.9 % (11.5-15.5)
[2019-10-02 17:48] LABS: PROTHROMBIN TIME 10.3 SECONDS (9.0-12.5)
[2019-10-02 17:52] LABS: ALBUMIN 4.2 g/dL (3.2-5.0); ALKALINE PHOSPHATASE 90 u/l (38-126); BUN 12 mg/dL (8-23); BUN/CREATININE RATIO 13 (12-20 (CALC)); CREATININE 0.9 mg/dL (0.5-1.0); GFR > 60 ML/MIN (>=60 (CALC)); GFR FOR AFR.AMER. > 60 ML/MIN (>=60 (CALC)); SGOT/AST 29 u/l (9-36); TOTAL PROTEIN 6.6 g/dL (6.3-8.2)
[2019-10-02 17:56] LABS: ANION GAP 12 (6-22 (CALC)); BILIRUBIN, TOTAL 0.6 mg/dL (0.0-1.4); CARBON DIOXIDE 32 mmol/l (22-30); CHLORIDE 90 mmol/l (95-108); POTASSIUM 2.9 mmol/l (3.5-5.1); SODIUM 131 mmol/l (137-146)
[2019-10-02 19:03] LABS: URINE BILIRUBIN - DIPSTICK NEGATIVE (NEGATIVE); URINE BLOOD DIPSTICK TRACE-INTACT (NEGATIVE); URINE COLOR YELLOW; URINE GLUCOSE - DIPSTICK NEGATIVE (NEGATIVE); URINE KETONE NEGATIVE (NEGATIVE); URINE NITRITE - DIPSTICK NEGATIVE (Negative); URINE PROTEIN - DIPSTICK NEGATIVE (NEG-TRACE); URINE UROBILINOGEN - DIPSTICK 0.2 E.U./dL (0.2)
[2019-10-02 19:12] LABS: URINE LEUK ESTERASE MODERATE (NEGATIVE)
[2019-10-02 19:13] LABS: URINE SQUAMOUS EPITHELIAL CELL FEW EPI/hpf (0-FEW)
[2019-10-03] VITALS (7 sets, daily range): BP systolic 117–138; BP diastolic 69–90
[2019-10-03 05:24] LABS: HEMATOCRIT 32.8 % (37.0-47.0); HEMOGLOBIN 10.2 g/dl (12.0-16.0); IMMATURE GRANULOCYTES 0.4 % (0.0-5.0); MEAN CELL VOLUME 82.8 fL CALC (80.0-100.0); MEAN CORPUSCULAR HGB 25.8 pG CALC (26.0-32.0); MEAN CORPUSCULAR HGB CONC 31.1 g/dL CAL (32.0-36.0); NEUT# 3.28 thou/uL (2.00-7.15); RED BLOOD COUNT 3.96 mill/uL (4.20-5.60)
[2019-10-03 06:00] LABS: ANION GAP 8 (6-22 (CALC)); BUN 9 mg/dL (8-23); BUN/CREATININE RATIO 13 (12-20 (CALC)); CARBON DIOXIDE 33 mmol/l (22-30); CHLORIDE 95 mmol/l (95-108); CREATININE 0.7 mg/dL (0.5-1.0); GFR > 60 ML/MIN (>=60 (CALC)); GFR FOR AFR.AMER. > 60 ML/MIN (>=60 (CALC)); MAGNESIUM 2.1 mg/dL (1.6-2.3); SODIUM 132 mmol/l (137-146)
[2019-10-03] MEDS ORDERED: HYDROMORPHON8 MG PO (10:02)
[2019-10-03] MEDS ORDERED: MIRTAZAPINE15 M1 PO (12:35)
[2019-10-03] MEDS ORDERED: CITALOPRAM40 M1 ×2 (12:42→12:45)
[2019-10-04 04:18] VITALS: BP 117/71
[2019-10-04 06:21] LABS: ANION GAP 9 (6-22 (CALC)); BUN 13 mg/dL (8-23); BUN/CREATININE RATIO 18 (12-20 (CALC)); CARBON DIOXIDE 30 mmol/l (22-30); CHLORIDE 100 mmol/l (95-108); CREATININE 0.7 mg/dL (0.5-1.0); GFR > 60 ML/MIN (>=60 (CALC)); GFR FOR AFR.AMER. > 60 ML/MIN (>=60 (CALC)); SODIUM 134 mmol/l (137-146)
[2019-10-04 06:25] LABS: HEMATOCRIT 37.4 % (37.0-47.0); HEMOGLOBIN 11.3 g/dl (12.0-16.0); IMMATURE GRANULOCYTES 0.4 % (0.0-5.0); MEAN CELL VOLUME 85.8 fL CALC (80.0-100.0); MEAN CORPUSCULAR HGB 25.9 pG CALC (26.0-32.0); MEAN CORPUSCULAR HGB CONC 30.2 g/dL CAL (32.0-36.0); NEUT# 4.94 thou/uL (2.00-7.15); RED BLOOD COUNT 4.36 mill/uL (4.20-5.60); RED CELL DISTRI WIDTH 15.5 % (11.5-15.5)
[2019-10-04 06:35] LABS: POTASSIUM 5.3 mmol/l (3.5-5.1)
[2019-10-04 08:20] VITALS: BP 118/80
[2019-10-04 11:21] VITALS: BP 112/67
[2019-10-04 20:20] VITALS: BP 141/76
[2019-10-05 00:16] VITALS: BP 118/72
[2019-10-05 04:00] VITALS: BP 119/67
[2019-10-05 07:46] VITALS: BP 125/75
[2019-10-05] MEDS ORDERED: LEVOFLOXACIN250 M1 PO (10:59)
[2019-10-05 11:23] LABS: ALBUMIN 4.2 g/dL (3.2-5.0); ALKALINE PHOSPHATASE 83 u/l (38-126); ANION GAP 8 (6-22 (CALC)); BUN 20 mg/dL (8-23); BUN/CREATININE RATIO 24 (12-20 (CALC)); CARBON DIOXIDE 30 mmol/l (22-30); CHLORIDE 98 mmol/l (95-108); CREATININE 0.8 mg/dL (0.5-1.0); GFR > 60 ML/MIN (>=60 (CALC)); GFR FOR AFR.AMER. > 60 ML/MIN (>=60 (CALC)); POTASSIUM 4.5 mmol/l (3.5-5.1); SGOT/AST 29 u/l (9-36); SODIUM 131 mmol/l (137-146); TOTAL PROTEIN 6.5 g/dL (6.3-8.2)
[2019-10-05 11:25] LABS: BILIRUBIN, TOTAL 0.3 mg/dL (0.0-1.4)
[2019-10-05 11:30] VITALS: BP 115/72
[2019-10-05] MEDS ORDERED: MEDDOSEPAK PO (13:34)
[2019-12-11] MEDS ORDERED: ARIPIPRAZOLE5 MG (09:51)
[2019-12-11] MEDS ORDERED: CLINDAMYCIN HC150 MG PO (09:52)
[2019-12-11] MEDS ORDERED: CITALOPRAM40 M1 (09:52)
[2019-12-11] MEDS ORDERED: ASPIRIN81 MG PO (09:54)
[2019-12-11] MEDS ORDERED: MULTI VIT PO (09:55)
== END 2019-10-05 14:35 | disposition home or self-care (01) ==
LOC: ED 15:22 → ED-I 19:46 → ED 20:03 → ED-I 20:04 → MS2 20:04
PROVIDERS: Internal Medicine; Nurse Practitioner Family; Student in an Organized Health Care Education/Training Program; ADMIT Internal Medicine; ATTEND Internal Medicine
DX: J44.1 Chronic obstructive pulmonary disease with (acute) exacerbation (principal); N39.0 Urinary tract infection, site not specified; J96.11 Chronic respiratory failure with hypoxia; E87.6 Hypokalemia; K21.9 Gastro-esophageal reflux disease without esophagitis; E03.9 Hypothyroidism, unspecified; E78.5 Hyperlipidemia, unspecified; F43.10 Post-traumatic stress disorder, unspecified; F32.9 Major depressive disorder, single episode, unspecified; G89.29 Other chronic pain; F41.9 Anxiety disorder, unspecified; B96.1 Klebsiella pneumoniae [K. pneumoniae] as the cause of diseases classified elsewhere; Z99.81 Dependence on supplemental oxygen; Z20.828 Contact with and (suspected) exposure to other viral communicable diseases
CPT/HCPCS: G0378; J1650; J1956; Q9967

== ENCOUNTER 2019-11-04 10:37 | Emergency (ER) | payer OTHER ==
[~2019-11-04] VITALS: Ht 154.9 cm; Wt 79.0 kg
[~2019-11-04 10:37] MED LIST changes: +CITALOPRAM40 M1; +HYDROMORPHON8 MG PO; +LEVOFLOXACIN250 M1 PO; +MIRTAZAPINE15 M1 PO
[2019-11-04 12:25] VITALS: BP 111/68
[2019-12-11] MEDS ORDERED: ARIPIPRAZOLE5 MG (09:51)
[2019-12-11] MEDS ORDERED: CITALOPRAM40 M1 (09:52)
[2019-12-11] MEDS ORDERED: CLINDAMYCIN HC150 MG PO (09:52)
[2019-12-11] MEDS ORDERED: ASPIRIN81 MG PO (09:54)
[2019-12-11] MEDS ORDERED: MULTI VIT PO (09:55)
== END 2019-11-04 12:25 | disposition home or self-care (01) ==
LOC: ED 10:37
DX: R04.0 Epistaxis (principal); J44.9 Chronic obstructive pulmonary disease, unspecified

== ENCOUNTER 2019-11-09 08:29 | Inpatient (IN) | payer OTHER ==
[~2019-11-09] VITALS: Ht 154.9 cm; Wt 81.3 kg
--- NOTE | 2019-11-09 08:30 | NUR ---
PATIENT TO ROOM VIA WHEELCHAIR FOR BEDSIDE TRIAGE.
--- NOTE | 2019-11-09 09:30 | NUR ---
PATIENT RESTING IN STRETCHER AND DENIES ANY NEEDS. RESP RATE 22, SPO2 96% ON 2L NC. PT DENIES ANY NEEDS CALL HILLIARD WITHIN REACH.
[2019-11-09 09:31] LABS: HEMOGLOBIN 9.5 g/dl (12.0-16.0); IMMATURE GRANULOCYTES 0.2 % (0.0-5.0); MEAN CORPUSCULAR HGB 26.4 pG CALC (26.0-32.0); MEAN CORPUSCULAR HGB CONC 33.7 g/dL CAL (32.0-36.0); NEUT# 2.78 thou/uL (2.00-7.15); RED BLOOD COUNT 3.6 mill/uL (4.20-5.60); RED CELL DISTRI WIDTH 15.8 % (11.5-15.5)
[2019-11-09 09:32] LABS: HEMATOCRIT 28.2 % (37.0-47.0); MEAN CELL VOLUME 78.3 fL CALC (80.0-100.0)
[2019-11-09 09:45] LABS: ALBUMIN 3.8 g/dL (3.2-5.0); ALKALINE PHOSPHATASE 95 u/l (38-126); BILIRUBIN, TOTAL 0.4 mg/dL (0.0-1.4); BUN 6 mg/dL (8-23); BUN/CREATININE RATIO 10 (12-20 (CALC)); CARBON DIOXIDE 33 mmol/l (22-30); CREATININE 0.6 mg/dL (0.5-1.0); GFR > 60 ML/MIN (>=60 (CALC)); GFR FOR AFR.AMER. > 60 ML/MIN (>=60 (CALC)); SGOT/AST 39 u/l (9-36); TOTAL PROTEIN 6.2 g/dL (6.3-8.2)
[2019-11-09 09:48] LABS: D-DIMER 0.91 mg/L (0.19-0.60)
[2019-11-09 09:49] LABS: ANION GAP 12 (6-22 (CALC)); CHLORIDE 75 mmol/l (95-108); SODIUM 118 mmol/l (137-146)
[2019-11-09 09:53] LABS: ACT PARTIAL THROMBO TIME 24.9 SECONDS (20.0-32.5); INTERNATIONAL NORMALIZED RATIO 0.9 RATIO (0.7-1.3); PROTHROMBIN TIME 9.4 SECONDS (9.0-12.5)
--- NOTE | 2019-11-09 10:40 | NUR ---
PATIENT RESTING IN STERTCHER IN NAD AND DENIES ANY NEEDS. CALL HILLIARD CEDRIC SEQUEIRA.
--- NOTE | 2019-11-09 10:48 | NUR ---
DR TONEY AT BEDSIDE.
[2019-11-09] MEDS ORDERED: ATORVASTATIN CA80 MG PO (11:01)
[2019-11-09] MEDS ORDERED: OXYBUTYNIN CHLO15 MG PO (11:02)
[2019-11-09] MEDS ORDERED: K-TABS10 MEQ PO (11:02)
[2019-11-09] MEDS ORDERED: QMIIZ ODT15 MG PO (11:02)
[2019-11-09] MEDS ORDERED: CITALOPRAM40 M1 PO (11:03)
[2019-11-09] MEDS ORDERED: ABILIFY5 MG PO (11:03)
[2019-11-09] MEDS ORDERED: LEVOTHYROXIN100 MCG PO (11:03)
[2019-11-09] MEDS ORDERED: MIRTAZAPINE30 M1 PO (11:04)
[2019-11-09] MEDS ORDERED: BUMETANIDE1 MG PO (11:05)
[2019-11-09] MEDS ORDERED: RESTORIL15 MG PO (11:05)
[2019-11-09] MEDS ORDERED: BUMETANIDE2 MG PO (11:06)
[2019-11-09] MEDS ORDERED: ISOSORB MONO30 MG PO (11:06)
[2019-11-09] MEDS ORDERED: MOTRIN800 MG PO (11:06)
[2019-11-09] MEDS ORDERED: FAMOTIDINE20 M1 PO (11:07)
[2019-11-09] MEDS ORDERED: SPIRIVA HANDIH18 MCG IN (11:07)
[2019-11-09] MEDS ORDERED: SYMBICORT1 AE1 IN (11:08)
--- NOTE | 2019-11-09 11:15 | NUR ---
PT COMPLETED IV MEDS. RESP EVEN AND UNLABORED. LARGE CLEAR YELLOW URINE OUTPUT VIA [place]ICK.PT UPDATED ON POC.
[2019-11-09] MEDS ORDERED: IPRATROPIU0.5 MG/3 M IN (11:22)
[2019-11-09] MEDS ORDERED: XALATAN0.005 % OU (11:22)
[2019-11-09] MEDS ORDERED: ATROVENT H17 MCG/ACT IN (11:23)
[2019-11-09] MEDS ORDERED: BRIMONIDINE0.2 % OU (11:23)
[2019-11-09] MEDS ORDERED: ALBUTEROL SUL0.083 % IN (11:24)
[2019-11-09] MEDS ORDERED: PROAIR HFA IN (11:24)
[2019-11-09] MEDS ORDERED: NITROGLYCERIN0.4 MG SL (11:25)
[2019-11-09] MEDS ORDERED: MS CONTIN30 MG PO (11:26)
[2019-11-09] MEDS ORDERED: HYDROMORPHON8 MG PO (11:26)
[2019-11-09] MEDS ORDERED: RANOLAZINE ER500 MG PO (11:33)
--- NOTE | 2019-11-09 12:00 | NUR ---
PT RESTING IN BED READING A BOOK ON CONTINUOUS O2@4LPM VIA NC. RESP EVEN AD UN LABORED. AT THIS TIME. UPDATED ON POC.
--- NOTE | 2019-11-09 12:27 | NUR ---
RECIEVED REPORT FROM MEAGHAN MCGARRY
--- NOTE | 2019-11-09 12:27 | NUR ---
REPORT CALLED TO KALYAN YEE MS
--- NOTE | 2019-11-09 12:35 | NUR ---
PT ARRIVED TO [facility] ROOM 272 VIA PORTABLE IN STABLE CONDITION ACCOMPAINED BY MEAGHAN MCGARRY. PT AMBULATED FROM PORTABLE TO BED WITH LITTLE DIFFCULTY. INTRODUCED SELF TO PT AND DISCUSSED POC. ASESSMENT AND VITALS COMPLETED AT THIS TIME. RESPIRATIONS ARE EVEN AND UNLABORED WITH NO SIGNS OF DISTRESS ON 4L NC. PT O2 SATS 100%. LOWERED TO 3L NC, PT STILL SATING AT 100%. WRITTER THEN LOWERED OXYGEN TO 2L NC. O2 SAT 98% BEFORE LEAVING ROOM. LUNG SOUNDS ARE DIMINISHED. PT COMPLAINS OF SOB ON EXCERTION. HEART RHYTHM IS NORMAL WITH TELE IN PLACE. BOWEL SOUNDS ARE ACTIVE IN ALL QUADRANTS, LAST REPORTED BM 11/09/2019. RADIAL AND PEDAL PULSES ARE STRONG WITH NORMAL CAPILLARY REFILL. #20G IN LFA FLUSHED AND IVF STARTED PER ORDER, SITE APPEARS HEALTHY AND PATENT. 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 PT STATES " I HAVE HAD A PRINGLE PROBLEM FOR THE PAST MONTH." WRITTER INFORMED OF PT ALLERGIES TO PENICILLINS, SULFA DRUGS AND PROPOXYPHENE, ALLERGY BAND APPLIED ALONG WITH FALL RISK STICKER. PT ORIENTED TO ROOM AND CALL LIGHT SYSTEM. PT HOME O2 IN ROOM ON COUNTER. ALL SAFETY PRECAUTIONS ARE IN PLACE WITH CALL LIGHT AND BSC IN PLACE. ENCOURAGED PT TO CALL . WILL CONTINUE TO MONITOR.
--- NOTE | 2019-11-09 13:00 | NUR ---
PT SLEEPING WITH HOB ELEVATED. RESP EVEN AND UNLABORED. PT ROUSES EASILY.
--- NOTE | 2019-11-09 13:30 | NUR ---
TRANSPORTED TO [place] VIA WC ON O2 IN NO DISTRESS.
[2019-11-09 13:40] VITALS: BP 114/71
[2019-11-09 14:47] LABS: ANION GAP 12 (6-22 (CALC)); BUN 6 mg/dL (8-23); BUN/CREATININE RATIO 10 (12-20 (CALC)); CARBON DIOXIDE 32 mmol/l (22-30); CHLORIDE 81 mmol/l (95-108); CREATININE 0.6 mg/dL (0.5-1.0); GFR > 60 ML/MIN (>=60 (CALC)); GFR FOR AFR.AMER. > 60 ML/MIN (>=60 (CALC)); POTASSIUM 2.7 mmol/l (3.5-5.1); SODIUM 122 mmol/l (137-146)
--- NOTE | 2019-11-09 16:54 | NUR ---
PT RESTING IN SEMI FOWLERS POSTITION UPON ENTERING ROOM. RESPIRATIONS ARE EVEN AND UNLABORED WITH NO SIGNS OF DISTRESS. IVF RUNNING PER ORDER, SITE APPEARS HEALTHY AND PATENT. PT DENIES OF ANY PAIN OR DISCOMFORTS. ALL SAEFTY PRCAUTIONS ARE IN PLACE WITH CALL LIGHT IN REACH AND BSC NEAR. WILL CONTINUE TO MONITOR.
[2019-11-09 17:09] VITALS: BP 100/62
[2019-11-09 19:00] VITALS: BP 98/68
--- NOTE | 2019-11-09 20:01 | NUR ---
REPORT RECEIVED FROM NURSE CHANCE. PT RESTING IN BED SUPINE; ASSESSMENT AND VITALS COMPLETE ALERT AND ORIENTED. PT DENIES PAIN. PTS HAS BUG BITES (PER PATIENT) BI-LATERLLY. RESPIRATIONS EVEN AND UNLABORED ON 2 LITER OF 02 AT REST; SOB UPON EXERTION.TELEMENTRY IN PLACE, NSR; EDEMA BILATERALLY. PT ENCOURAGED TO VERBALIZE CONCERNS. STATES UNDERSTANDING. SAFETY MEASURES IN PLACE. CALL LIGHT WITHIN REACH.
--- NOTE | 2019-11-09 21:45 | NUR ---
MED LIST REVIEWED WITH PT AT THIS TIME PER PHYSICIAN'S REQUEST. PT WAS ABLE TO LIST EACH MEDICATION LAST TAKEN AND ORDERED. MED REQ COMPLETED AT THIS TIME AND PHYSICIAN NOTIFIED. ORDERS RECEIVED.
[2019-11-09 22:40] LABS: URINE BILIRUBIN - DIPSTICK NEGATIVE (NEGATIVE); URINE BLOOD DIPSTICK NEGATIVE (NEGATIVE); URINE COLOR YELLOW; URINE GLUCOSE - DIPSTICK NEGATIVE (NEGATIVE); URINE KETONE NEGATIVE (NEGATIVE); URINE LEUK ESTERASE NEGATIVE (NEGATIVE); URINE NITRITE - DIPSTICK NEGATIVE (Negative); URINE PROTEIN - DIPSTICK NEGATIVE (NEG-TRACE); URINE SPECIFIC GRAVITY <=1.005; URINE UROBILINOGEN - DIPSTICK 0.2 E.U./dL (0.2)
[2019-11-10] VITALS: BP 106/74
--- NOTE | 2019-11-10 00:01 | NUR ---
PHYSICAL ASSESSMENT UNCHANGED FROM BEGINNING OF SHIFT. PT AFEBRILE. PT DENIES NEEDS AT THIS TIME. IV PATENT WITH NS RUNNING AT [address] HR[address]. ITEMS REMAIN WITHIN REACH; BED LOCKED IN LOW POSITION W/ BEDRAILS UP X 2. CALL HILLIARD REMAINS WIITHIN REACH. PT AGREES TO CALL FOR ANY NEEDS.
--- NOTE | 2019-11-10 02:22 | NUR ---
pt sleeping, no s/o distress noted. lights and tv are on.
[2019-11-10 04:00] VITALS: BP 106/73
--- NOTE | 2019-11-10 04:16 | NUR ---
PT AWAKE WATCHING TV, PROVIDED CUP OF COFFEE PER REQUEST. NO S/O DISTRESS AT THIS TIME. ENCOURAGED PT TO CALL NEEDS ARISE.
[2019-11-10 05:10] LABS: BUN 8 mg/dL (8-23); BUN/CREATININE RATIO 16 (12-20 (CALC)); CARBON DIOXIDE 28 mmol/l (22-30); CHLORIDE 90 mmol/l (95-108); CREATININE 0.5 mg/dL (0.5-1.0); GFR > 60 ML/MIN (>=60 (CALC)); GFR FOR AFR.AMER. > 60 ML/MIN (>=60 (CALC)); SODIUM 125 mmol/l (137-146)
[2019-11-10 05:18] LABS: ANION GAP 11 (6-22 (CALC)); POTASSIUM 3.7 mmol/l (3.5-5.1)
[2019-11-10 07:40] VITALS: BP 125/70
--- NOTE | 2019-11-10 07:40 | NUR ---
ASSESSMENT IS COMPLETED: IV SITE IS FREE FROM REDNESS OR EDEMA. HR IS REG,PULSES ARE STRONG X4, ABD IS SOFT WITH ACTIVE BS. BREATH SOUNDS ARE DININISHED. TELE MONITOR IN DARI CE
[2019-11-10 10:30] VITALS: BP 99/68
--- NOTE | 2019-11-10 12:00 | NUR ---
PT IS RELAXING AND TALKING TO THE FAMILY. NO DISTRESS NOTED. IV SITE IS FREE FROM REDNESS OR EDEMA.
[2019-11-10 15:00] VITALS: BP 100/68
--- NOTE | 2019-11-10 16:00 | NUR ---
PT CONTINUES TO RELAX IN THE BED WITH NO DISTRESS NOTED, IV SITE IS FREE FROM REDNESS OR EDEMA.
[2019-11-10 19:00] VITALS: BP 110/72
--- NOTE | 2019-11-10 19:50 | NUR ---
REPORT RECEIVED FROM NURSE BRIANNA. PT RESTING IN BED SUPINE; ASSESSMENT AND VITALS COMPLETE ALERT AND ORIENTED. PT DENIES PAIN. RESPIRATIONS EVEN AND UNLABORED ON 2 LITER OF 02 AT REST; SOB UPON EXERTION.TELEMENTRY IN PLACE, NSR; EDEMA BILATERALLY. PT ENCOURAGED TO VERBALIZE CONCERNS. STATES UNDERSTANDING. SAFETY MEASURES IN PLACE. CALL LIGHT WITHIN REACH.
[2019-11-11] VITALS (7 sets, daily range): BP systolic 107–148; BP diastolic 68–85
--- NOTE | 2019-11-11 00:39 | NUR ---
PT REWSTING IN THE BED WITH NO DISTRESS NOTED, IV SITE IS FREE FROM REDNESS OR EDEMA. CALL HILLIARD WITHIN REACH. WILL CONTINUE TO MONITOR.
--- NOTE | 2019-11-11 04:28 | NUR ---
PHYSICAL ASSESSMENT UNCHANGED FROM BEGINNING OF SHIFT. PT AFEBRILE. PT DENIES NEEDS AT THIS TIME. IV PATENT WITH NS RUNNING AT 20 PER HR KVO. TELEMENTRY IN PLACE. ITEMS REMAIN WITHIN REACH; BED LOCKED IN LOW POSITION W/ BEDRAILS UP X 2. CALL HILLIARD REMAINS WIITHIN REACH. PT AGREES TO CALL FOR ANY NEEDS.
[2019-11-11 04:42] LABS: HEMATOCRIT 27.1 % (37.0-47.0); HEMOGLOBIN 8.5 g/dl (12.0-16.0); IMMATURE GRANULOCYTES 0.6 % (0.0-5.0); MEAN CORPUSCULAR HGB 26.4 pG CALC (26.0-32.0); MEAN CORPUSCULAR HGB CONC 31.4 g/dL CAL (32.0-36.0); NEUT# 7.44 thou/uL (2.00-7.15); RED BLOOD COUNT 3.22 mill/uL (4.20-5.60); RED CELL DISTRI WIDTH 16.9 % (11.5-15.5)
[2019-11-11 04:44] LABS: MEAN CELL VOLUME 84.2 fL CALC (80.0-100.0)
[2019-11-11 04:58] LABS: ANION GAP 10 (6-22 (CALC)); BUN 14 mg/dL (8-23); BUN/CREATININE RATIO 23 (12-20 (CALC)); CARBON DIOXIDE 29 mmol/l (22-30); CHLORIDE 95 mmol/l (95-108); CREATININE 0.6 mg/dL (0.5-1.0); GFR > 60 ML/MIN (>=60 (CALC)); GFR FOR AFR.AMER. > 60 ML/MIN (>=60 (CALC)); POTASSIUM 3.3 mmol/l (3.5-5.1); SODIUM 129 mmol/l (137-146)
--- NOTE | 2019-11-11 07:30 | NUR ---
REPORT RECEIVED FROM MEAGHAN GILBERT. PT UP TO BSC AND SITTING UP ON EDGE OF BED; ALERT AND OREINTED. C/O CHRONIC MODERATE BACK PAIN. RESPIRATIONS SLIGHTLY LABORED WITH EXERTIONAL SOB TO BSC; MILD AUDIBLE WHEEZING NOTED; LUNGS DIMINISHED THROUGHOUT; OXYGEN IN PLACE 3L ON NC; SPO2 97%. PT PLEASANT AND SMILING. TELE ON. IV FLUIDS INFUSING AT KVO; IV SITE APPEARS HEALTHY. PLAN OF CARE REVIEWED. PT ENCOURAGED TO VERBALIZE CONCERNS. STATES UNDERSTANDING. SAFETY MEASURES IN PLACE. CALL LIGHT WITHIN REACH.
--- NOTE | 2019-11-11 11:30 | NUR ---
PT note: patient is screened for PT intervention and no needs are identified at this time
--- NOTE | 2019-11-11 12:21 | NUR ---
PT INDEPENDENT IN ROOM; USES CALL LIGHT PRN FOR ASSISTANCE. NO REQUESTS OR CONCERNS AT THIS TIME.
--- NOTE | 2019-11-11 13:09 | NUR ---
PO DILAUDID GIVEN FOR 08/06 MIDDLE BACK PAIN. IV FLUIDS NOW INFUSING AT 50 ML/HR.
--- NOTE | 2019-11-11 19:00 | NUR ---
REPORT RECEIVED FROM MEAGHAN KUHN. PT RESTING IN CHAIR AT BEDSIDE, NO S/S OF DISTRESS AT THIS TIME. WILL CONTINUE TO MONITOR.
--- NOTE | 2019-11-11 20:05 | NUR ---
PT RESTING IN CHAIR AT BEDSIDE, ALERT AND ORIENTED. RESPIRATIONS ARE EVEN AND UNLABORED ON O2 @ 3L VIA NC. LUNGS SOUND DIMINISHED. PEDAL PULSES ARE STRONG. PT REPORTS MILD PAIN BUT DENIES NEEDING ANY THING FOR HER PAIN AT THIS TIME. SAFETY PRECAUTIONS IN PLACE. WILLCONTINUE TO MONITOR.
--- NOTE | 2019-11-12 00:05 | NUR ---
PT RESTING IN BED, NO S/S OF DISTRESS AT THIS TIME. SAFETY PRECAUTIONS IN PLACE. WILL CONTINUE TO MONITOR.
--- NOTE | 2019-11-12 04:05 | NUR ---
PT RESTING IN BED FREE OF DISTRESS AT THIS TIME.
[2019-11-12 04:47] LABS: HEMOGLOBIN 8.9 g/dl (12.0-16.0); IMMATURE GRANULOCYTES 0.9 % (0.0-5.0); MEAN CELL VOLUME 86.3 fL CALC (80.0-100.0); MEAN CORPUSCULAR HGB 26.5 pG CALC (26.0-32.0); MEAN CORPUSCULAR HGB CONC 30.7 g/dL CAL (32.0-36.0); NEUT# 6.81 thou/uL (2.00-7.15); RED BLOOD COUNT 3.36 mill/uL (4.20-5.60); RED CELL DISTRI WIDTH 17.4 % (11.5-15.5)
[2019-11-12 05:07] LABS: ALBUMIN 3.4 g/dL (3.2-5.0); ALKALINE PHOSPHATASE 77 u/l (38-126); BUN 19 mg/dL (8-23); BUN/CREATININE RATIO 23 (12-20 (CALC)); CARBON DIOXIDE 29 mmol/l (22-30); CHLORIDE 96 mmol/l (95-108); CREATININE 0.8 mg/dL (0.5-1.0); GFR > 60 ML/MIN (>=60 (CALC)); GFR FOR AFR.AMER. > 60 ML/MIN (>=60 (CALC)); SGOT/AST 35 u/l (9-36); SODIUM 130 mmol/l (137-146); TOTAL PROTEIN 5.6 g/dL (6.3-8.2)
[2019-11-12 05:10] LABS: ANION GAP 10 (6-22 (CALC)); BILIRUBIN, TOTAL 0.2 mg/dL (0.0-1.4); POTASSIUM 4.5 mmol/l (3.5-5.1)
[2019-11-12 05:12] VITALS: BP 151/86
[2019-11-12 08:48] VITALS: BP 114/78
--- NOTE | 2019-11-12 08:48 | NUR ---
RECIEVED REPORT FROM Sheila ESQUIVEL RN. PT RESTING IN SEMI FOWLERS POSITION UPON ENTERING ROOM.INTRODUCED SELF TO PT AND DISCUSSED POC. PT IS A/O X3.ASESSMENT AND VITALS COMPLETED AT THIS TIME. RESPIRATIONS ARE EVEN AND UNLABORED WITH NO SIGNS OF DISTRESS NOTED ON 3L NC. OXYGEN LOWERED TO 2L NC DUE TO SATS AT 100%, PT SATING 98% UPON LEAVING ROOM. PT EDUACTED TO CALL IF FEELING SOB. PT VERBAILZED UNDERSTANDING. HEART RHYTHM IS NORMAL WITH TELE IN PLACE. BOWEL SOUNDS ARE ACTIVE IN ALL QUADRANTS, LAST REPORTED BM 11/12/2019. RADIAL AND PEDAL PULSES ARE STRONG WITH NORMAL CAPILLARY REFILL. #20 IN LW RUNNING WITH IVF PER ORDER, SITE APPEARS HEALTHY AND PATENT. PT PRESENTS WITH BITES ON BLE AND ARMS,PT STATES SHE HAS A "PRINGLE INFESTATION." PT WAS PERVIOUSLY ON CONTACT PRECAUTIONS BUT IS NOW ON STANDARD. PT DENIES ANY PAIN OR DISCOMFORTS AT THIS TIME. ALL SAFETY PRECAUTIONS ARE IN PLACE WITH CALL LIGHT IN REACH. WILL CONTINUE TO MONITOR
[2019-11-12 11:14] VITALS: BP 127/79
--- NOTE | 2019-11-12 12:48 | NUR ---
PT RESTING IN RECYLINER AT THIS TIME. RESRPIATIONS ARE EVEN AND UNLABORED AT THIS TIME.PT IS A/OX 3 . RESPIRATORY CALL FOR BREATHING TREATMENT. PT DENEIES ANY PAIN OR DISCOMFORTS AT THIS TIME. ALL SAFETY PRECAUTIONS ARE IN PLACE WITH CALL LIGHT IN REACH. WILL CONTINUE TO MONITOR
--- NOTE | 2019-11-12 13:01 | NUR ---
RT AT BEDSIDE ADMINISTERING BREATHING TREATMENT AT THIS TIME.
[2019-11-12] MEDS ORDERED: BUMETANIDE2 MG PO (13:44)
[2019-11-12] MEDS ORDERED: K-TABS10 MEQ PO ×2 (13:46)
[2019-11-12] MEDS ORDERED: PREDNISONE10 MG PO (14:01)
--- NOTE | 2019-11-12 14:31 | NUR ---
PT EDUCATED ON DISCHARGE INSTRUCTIONS AND NEW MEDICATION PREDNISONE. PT VERBAILZED UNDERSTADING. PT EDUCTAED ON DECREASE OF BUMEX AND ADDITIONAL DOSES OF BUMEX AND POTASSSIUM. PT VERBALIZED UNDERSTANDING. IV REMOVED WITH CATHATER STILL INTACT.PT TOLERATED WELL. TELE MONITORUING REMOVED. ER NOTIFIED. PT INFORMS ArticleAlleyITTER THAT SHE WILL BE DRIVING HER SELF. NU ARAUZ NOTIFIED. ALL SAFETY PRECAUTIONS REMAIN IN PLACE. WILL CONTINUE TO MONITOR
--- NOTE | 2019-11-12 15:00 | NUR ---
PT ASSISTED TO WHEELCHAIR BY ROSEMARY GOMEZ. PT PRESENTED TO BE VERY SOB ON 3L NC . PT STATED " I JUST NEED TO CATCH MY BREATH FOR A MIN. " PT ABLE TO REST IN WHEELCHAIR. WRITTER SUGGESTED FOR PT TO NOT DRIVE HOME DUE TO SOB. PT REFUSED STATING "I CAN DRIVE I JUST NEED A MINUET TO SIT THERE."WRITTER INSTEADED ON RESTING FOR A FEW. PT AGREEED. ALL SAFETY PRECAUTIONS REMAIN IN PLACE WITH CALL LIGHT IN REACH.
--- NOTE | 2019-11-12 15:27 | NUR ---
Discharge instructions given. Patient verbalizes understanding of same. Discharged in stable condition via Wheelchair to Home with staff. All belongings sent with pt. PT DISCHARGED WITH ALL DISCHARGE INSTRUCTIONS AND BELONGINGS. PT INSISTED ON DRIVING HER SELF AFTER WRITTER SUGGESTED ON GETTING A RIDE. PT DISCHARGED VIA WHEELCHAIR IN STABLE CONDITION ACCOMPAINED BY ROSEMARY GOMEZ
--- NOTE | 2019-11-14 09:30 | NUR ---
Patient called for Covid results. Notified her that Covid test was negative. Patient states she has appointment with PCP next week. Advised patient to continue with Covid prevention practices and return to ED with difficulty breathing or other urgent needs. Patient verbalized understanding.
[2019-12-11] MEDS ORDERED: ARIPIPRAZOLE5 MG (09:51)
[2019-12-11] MEDS ORDERED: CITALOPRAM40 M1 (09:52)
[2019-12-11] MEDS ORDERED: CLINDAMYCIN HC150 MG PO (09:52)
[2019-12-11] MEDS ORDERED: ASPIRIN81 MG PO (09:54)
[2019-12-11] MEDS ORDERED: MULTI VIT PO (09:55)
== END 2019-11-12 15:22 | disposition home or self-care (01) | DRG 191 ==
LOC: ED 08:29 → ED-I 08:46 → ED 08:46 → ED-I 10:16 → ED 10:25 → MS2 10:26
PROVIDERS: Nurse Practitioner; Physician Assistant; ADMIT Internal Medicine; ATTEND Internal Medicine
DX: J43.9 Emphysema, unspecified (principal); E87.1 Hypo-osmolality and hyponatremia; J96.10 Chronic respiratory failure, unspecified whether with hypoxia or hypercapnia; E87.3 Alkalosis; I11.0 Hypertensive heart disease with heart failure; I50.9 Heart failure, unspecified; E87.6 Hypokalemia; E87.8 Other disorders of electrolyte and fluid balance, not elsewhere classified; K21.9 Gastro-esophageal reflux disease without esophagitis; R04.0 Epistaxis; D50.0 Iron deficiency anemia secondary to blood loss (chronic); E78.5 Hyperlipidemia, unspecified; F32.9 Major depressive disorder, single episode, unspecified; T50.1X5A Adverse effect of loop [high-ceiling] diuretics, initial encounter; E03.9 Hypothyroidism, unspecified; G89.4 Chronic pain syndrome; F17.200 Nicotine dependence, unspecified, uncomplicated; Z99.81 Dependence on supplemental oxygen; Z20.828 Contact with and (suspected) exposure to other viral communicable diseases
CPT/HCPCS: J1650

== ENCOUNTER 2019-11-14 13:33 | Emergency (ER) | payer OTHER ==
[~2019-11-14] VITALS: Ht 154.9 cm; Wt 87.0 kg
[~2019-11-14 13:33] MED LIST changes: +ATROVENT H17 MCG/ACT IN; +BRIMONIDINE0.2 % OU; +BUMETANIDE2 MG PO; +CITALOPRAM40 M1 PO; +FAMOTIDINE20 M1 PO; +IPRATROPIU0.5 MG/3 M IN; +ISOSORB MONO30 MG PO; +K-TABS10 MEQ PO; +MIRTAZAPINE30 M1 PO; +MOTRIN800 MG PO; +NITROGLYCERIN0.4 MG SL; +OXYBUTYNIN CHLO15 MG PO; +QMIIZ ODT15 MG PO; +RANOLAZINE ER500 MG PO; +RESTORIL15 MG PO; +SPIRIVA HANDIH18 MCG IN; +XALATAN0.005 % OU
[2019-11-14 14:06] LABS: HEMATOCRIT 30.7 % (37.0-47.0); HEMOGLOBIN 9.6 g/dl (12.0-16.0); IMMATURE GRANULOCYTES 1.4 % (0.0-5.0); MEAN CELL VOLUME 84.6 fL CALC (80.0-100.0); MEAN CORPUSCULAR HGB 26.4 pG CALC (26.0-32.0); MEAN CORPUSCULAR HGB CONC 31.3 g/dL CAL (32.0-36.0); NEUT# 4.7 thou/uL (2.00-7.15); RED BLOOD COUNT 3.63 mill/uL (4.20-5.60); RED CELL DISTRI WIDTH 17.9 % (11.5-15.5)
[2019-11-14 14:32] LABS: ALBUMIN 3.9 g/dL (3.2-5.0); ALKALINE PHOSPHATASE 88 u/l (38-126); BUN 16 mg/dL (8-23); BUN/CREATININE RATIO 22 (12-20 (CALC)); CHLORIDE 95 mmol/l (95-108); CREATININE 0.7 mg/dL (0.5-1.0); GFR > 60 ML/MIN (>=60 (CALC)); GFR FOR AFR.AMER. > 60 ML/MIN (>=60 (CALC)); POTASSIUM 3.8 mmol/l (3.5-5.1); SGOT/AST 37 u/l (9-36); SODIUM 133 mmol/l (137-146); TOTAL PROTEIN 6.3 g/dL (6.3-8.2)
[2019-11-14 14:33] LABS: ANION GAP 7 (6-22 (CALC)); BILIRUBIN, TOTAL 0.6 mg/dL (0.0-1.4); CARBON DIOXIDE 35 mmol/l (22-30)
[2019-11-14 14:44] LABS: MYOGLOBIN 105 ng/mL (0 - 62)
[2019-11-14 16:06] VITALS: BP 159/97
[2019-12-11] MEDS ORDERED: ARIPIPRAZOLE5 MG (09:51)
[2019-12-11] MEDS ORDERED: CITALOPRAM40 M1 (09:52)
[2019-12-11] MEDS ORDERED: CLINDAMYCIN HC150 MG PO (09:52)
[2019-12-11] MEDS ORDERED: ASPIRIN81 MG PO (09:54)
[2019-12-11] MEDS ORDERED: MULTI VIT PO (09:55)
== END 2019-11-14 18:12 | disposition home or self-care (01) ==
LOC: ED 13:33
PROVIDERS: Emergency Medicine
DX: J44.9 Chronic obstructive pulmonary disease, unspecified (principal); B37.0 Candidal stomatitis; I50.9 Heart failure, unspecified; Z99.81 Dependence on supplemental oxygen

== ENCOUNTER 2019-12-06 08:44 | Emergency (ER) | payer OTHER ==
[~2019-12-06] VITALS: Ht 154.9 cm; Wt 72.0 kg
[2019-12-06] MEDS ORDERED: CLINDAMYCIN HC150 MG PO (09:04)
[2019-12-06] MEDS ORDERED: SPIRONOLACT25 MG PO (09:05)
[2019-12-06] MEDS ORDERED: MUPIROCIN21 TOP (09:06)
[2019-12-06 09:26] LABS: HEMATOCRIT 30.4 % (37.0-47.0); HEMOGLOBIN 9.6 g/dl (12.0-16.0); IMMATURE GRANULOCYTES 0.2 % (0.0-5.0); MEAN CELL VOLUME 85.9 fL CALC (80.0-100.0); MEAN CORPUSCULAR HGB 27.1 pG CALC (26.0-32.0); MEAN CORPUSCULAR HGB CONC 31.6 g/dL CAL (32.0-36.0); NEUT# 3.73 thou/uL (2.00-7.15); RED BLOOD COUNT 3.54 mill/uL (4.20-5.60)
[2019-12-06 09:49] LABS: ALBUMIN 3.9 g/dL (3.2-5.0); ALKALINE PHOSPHATASE 87 u/l (38-126); ANION GAP 10 (6-22 (CALC)); BILIRUBIN, TOTAL 0.8 mg/dL (0.0-1.4); BUN 7 mg/dL (8-23); BUN/CREATININE RATIO 8 (12-20 (CALC)); CARBON DIOXIDE 36 mmol/l (22-30); CHLORIDE 97 mmol/l (95-108); CREATININE 0.9 mg/dL (0.5-1.0); GFR > 60 ML/MIN (>=60 (CALC)); GFR FOR AFR.AMER. > 60 ML/MIN (>=60 (CALC)); LIPASE 63 u/l (23-300); POTASSIUM 3.5 mmol/l (3.5-5.1); SGOT/AST 29 u/l (9-36); SODIUM 139 mmol/l (137-146); TOTAL PROTEIN 6.2 g/dL (6.3-8.2)
[2019-12-06 10:11] LABS: URINE BILIRUBIN - DIPSTICK NEGATIVE (NEGATIVE); URINE BLOOD DIPSTICK NEGATIVE (NEGATIVE); URINE COLOR YELLOW; URINE GLUCOSE - DIPSTICK NEGATIVE (NEGATIVE); URINE KETONE NEGATIVE (NEGATIVE); URINE LEUK ESTERASE NEGATIVE (NEGATIVE); URINE NITRITE - DIPSTICK NEGATIVE (Negative); URINE PROTEIN - DIPSTICK NEGATIVE (NEG-TRACE); URINE UROBILINOGEN - DIPSTICK 0.2 E.U./dL (0.2)
[2019-12-06 13:19] VITALS: BP 100/70
[2019-12-11] MEDS ORDERED: ARIPIPRAZOLE5 MG (09:51)
[2019-12-11] MEDS ORDERED: CLINDAMYCIN HC150 MG PO (09:52)
[2019-12-11] MEDS ORDERED: CITALOPRAM40 M1 (09:52)
[2019-12-11] MEDS ORDERED: ASPIRIN81 MG PO (09:54)
[2019-12-11] MEDS ORDERED: MULTI VIT PO (09:55)
== END 2019-12-06 13:38 | disposition home or self-care (01) ==
LOC: ED 08:44 → ED-I 10:25 → ED 10:25
PROVIDERS: Family Medicine
DX: K22.2 Esophageal obstruction (principal); E66.9 Obesity, unspecified

== ENCOUNTER 2020-01-02 15:34 | Inpatient (IN) | payer OTHER ==
[~2020-01-02] VITALS: Ht 154.9 cm; Wt 80.5 kg
[~2020-01-02 15:34] MED LIST changes: +ARIPIPRAZOLE5 MG PO; +ASPIRIN81 MG PO; +CALCIUM600 M3 PO; +CLINDAMYCIN HC150 MG PO; +MULTI VIT PO; +MUPIROCIN21 TOP; +SPIRONOLACT25 MG PO
--- NOTE | 2020-01-02 15:41 | NUR ---
PT TO ROOM VIA EMS. 2 DUO NEBS, 10MG DECADRON GIVEN. IV ESTABLISHED BY EMS
--- NOTE | 2020-01-02 16:45 | NUR ---
PT IN NO DISTRESS. CALL LIGHT WITHIN REACH. NO COMPLAINTS AT THIS TIME.
[2020-01-02 17:01] LABS: ALBUMIN 3.6 g/dL (3.2-5.0); ALKALINE PHOSPHATASE 77 u/l (38-126); BILIRUBIN, TOTAL 0.8 mg/dL (0.0-1.4); BUN 12 mg/dL (8-23); BUN/CREATININE RATIO 9 (12-20 (CALC)); CARBON DIOXIDE 32 mmol/l (22-30); CREATININE 1.3 mg/dL (0.5-1.0); GFR 42 ML/MIN (>=60 (CALC)); GFR FOR AFR.AMER. 50 ML/MIN (>=60 (CALC)); HEMATOCRIT 28.5 % (37.0-47.0); HEMOGLOBIN 9.3 g/dl (12.0-16.0); IMMATURE GRANULOCYTES 0.4 % (0.0-5.0); MEAN CORPUSCULAR HGB 26.4 pG CALC (26.0-32.0); MEAN CORPUSCULAR HGB CONC 32.6 g/dL CAL (32.0-36.0); NEUT# 6.24 thou/uL (2.00-7.15); POTASSIUM 2.9 mmol/l (3.5-5.1); RED BLOOD COUNT 3.52 mill/uL (4.20-5.60); RED CELL DISTRI WIDTH 16.4 % (11.5-15.5); SGOT/AST 32 u/l (9-36); TOTAL PROTEIN 5.8 g/dL (6.3-8.2)
[2020-01-02 17:03] LABS: ANION GAP 12 (6-22 (CALC)); CHLORIDE 79 mmol/l (95-108); SODIUM 120 mmol/l (137-146)
[2020-01-02 17:11] LABS: MYOGLOBIN 95 ng/mL (0 - 62)
--- NOTE | 2020-01-02 17:40 | NUR ---
VITALS STABLE, BED IN LOW POSITION. MEDS ADMINISTERED WITHOUT COMPLICATIONS.
--- NOTE | 2020-01-02 18:10 | NUR ---
EMS IV DISLODGED, NEW IV STARTED AT THIS TIME. IV FLUIDS AND MEDS INFUSING WITHOUT COMPLICATIONS.
--- NOTE | 2020-01-02 19:10 | NUR ---
TOOK OVER PT CARE TO BE ADMITTED. MAY LEFT AND REPORT GIVEN TO JULIO.
--- NOTE | 2020-01-02 19:11 | NUR ---
PT ALREADY ON 02 @ 3L VIA NC
--- NOTE | 2020-01-02 20:25 | NUR ---
ASSISTED PT TO BEDSIDE COMMODE, URINE COLLECTED. MEAGHAN LAURENT DIRECTOR LEARNING SERVICES HERE TO TRANSFER PT.
--- NOTE | 2020-01-02 20:30 | NUR ---
PATIENT ARRIVES VIA WHEELCHAIR ACCOMPANIED BY TELETYPESETTER ANASTASIIA. ON 2.5 L/MIN NC. PT IS SOB WITH EXERTION, LABORED BREATHING. PT REPORTS SHE WEARS NC 3 L/MIN ANS SOB WITH EXERTION IS BASELINE. RH 22 G IV INTACT, NS AT 80 ML/HR PATIENT HAS UNSTAEDY GAIT, GENERALIZED WEAKNESS. SHE REPORTS SHE FEEL YESTERDAY, AND SHE REPORTS SHE IS TRYING TO GET A SCOOTER. NURSE ASSESSMENT PERFORMED. O2 SAT GREATER THAN 95%. SR ON TELE. REPORTS SHE HAS BEEN AT [facility] 3 TIMES IN THE LAST THREE MONTHS. POC DISCUSSED. WEARS GLASSES. NO COMPLAINTS OF PAIN. ABRASIONS ON BILAT LE, DRY/SCABBED. EMERGENCY DEPARTMENT AIDE COUGH. REFUSES FLU OR PNA VACCINE. HER DAUGHTER AND GRANDSON LIVE WITH HER. ADMISSION COMPLETED. SELF REPOSITIONS. CALL LIGHT WITHIN REACH.
[2020-01-02 21:00] VITALS: BP 131/80
[2020-01-02 21:01] LABS: URINE BILIRUBIN - DIPSTICK NEGATIVE (NEGATIVE); URINE BLOOD DIPSTICK NEGATIVE (NEGATIVE); URINE CLARITY CLEAR; URINE COLOR YELLOW; URINE GLUCOSE - DIPSTICK NEGATIVE (NEGATIVE); URINE KETONE NEGATIVE (NEGATIVE); URINE LEUK ESTERASE NEGATIVE (Negative); URINE NITRITE - DIPSTICK NEGATIVE (Negative); URINE PROTEIN - DIPSTICK NEGATIVE (NEG-TRACE); URINE SPECIFIC GRAVITY 1.015; URINE UROBILINOGEN - DIPSTICK 0.2 E.U./dL (0.2)
[2020-01-02] MEDS ORDERED: MS CONTIN30 MG PO (21:13)
[2020-01-02] MEDS ORDERED: DILAUDID8 MG PO (21:13)
--- NOTE | 2020-01-02 21:35 | NUR ---
PATIENT IS TALKING ON THE PHONE, WARM DINNER PROVIDED WITH A COLA PER REQUEST. NO ACUTE DISTRESS SHOWN.
--- NOTE | 2020-01-02 23:27 | NUR ---
PATIENT UP TO BSC, ASSIST X1. VOIDED 400 ML, URINE YELLOW/CLOUDY. BACK TO BED SAFELY. DOES HAVE STRESS INCONTINENCE. BED LINEN CHANGED. HAD DIFFICULTY SWALLOWING POTASSIUM TABLET. TOLERATED LOVENOX INJECTION. NO OTHER NEEDS OR CPMPLAINTS AT THIS TIME.
[2020-01-03] VITALS (9 sets, daily range): BP systolic 81–145; BP diastolic 53–102
--- NOTE | 2020-01-03 03:04 | NUR ---
PATIENT REQUESTS INHALER FOR SOB AND WHEEZING, PROVIDED. SITS IN HIGH TAYLOR'S. O2 SATS GREATER THAN 95%.
--- NOTE | 2020-01-03 05:52 | NUR ---
PATIENT ASSISTED TO BSC, NOW SAFELY BACK IN BED. VOIDED 900 ML. ABLE TO SWALLOW HER SYNTHROID. SOB WITH EXERTION. O2 SAT 99%. ENCOURAGED PURSED LIP BREATHIN. CALL LIGHT WITHIN REACH.
--- NOTE | 2020-01-03 05:59 | NUR ---
Patient is screened for rehab intervention and no needs are identified at this time
[2020-01-03 06:03] LABS: HEMATOCRIT 29.4 % (37.0-47.0); HEMOGLOBIN 9.5 g/dl (12.0-16.0); IMMATURE GRANULOCYTES 0.6 % (0.0-5.0); MEAN CELL VOLUME 82.8 fL CALC (80.0-100.0); MEAN CORPUSCULAR HGB 26.8 pG CALC (26.0-32.0); MEAN CORPUSCULAR HGB CONC 32.3 g/dL CAL (32.0-36.0); NEUT# 5.91 thou/uL (2.00-7.15); RED BLOOD COUNT 3.55 mill/uL (4.20-5.60); RED CELL DISTRI WIDTH 16.4 % (11.5-15.5)
[2020-01-03 06:18] LABS: ALBUMIN 3.5 g/dL (3.2-5.0); ALKALINE PHOSPHATASE 78 u/l (38-126); ANION GAP 12 (6-22 (CALC)); BILIRUBIN, TOTAL 0.6 mg/dL (0.0-1.4); BUN 13 mg/dL (8-23); BUN/CREATININE RATIO 14 (12-20 (CALC)); C-REACTIVE PROTEIN 2.8 mg/dL (0-0.9); CARBON DIOXIDE 29 mmol/l (22-30); CHLORIDE 86 mmol/l (95-108); CREATININE 0.9 mg/dL (0.5-1.0); GFR > 60 ML/MIN (>=60 (CALC)); GFR FOR AFR.AMER. > 60 ML/MIN (>=60 (CALC)); SGOT/AST 34 u/l (9-36); SODIUM 123 mmol/l (137-146); TOTAL PROTEIN 5.8 g/dL (6.3-8.2)
[2020-01-03 06:32] LABS: POTASSIUM 3.7 mmol/l (3.5-5.1)
--- NOTE | 2020-01-03 07:30 | NUR ---
pt resting in bed with eyes closed; no apparent distress noted; easily aroused; pt alert and oriented; pt admits to pain to ble d/t "being cold"; denies need for pain meds; no n/v noted; resp even and unlabored; lungs with wheezing throughout; skin color wnl; o2 per nc at 2.5L; no cough noted; hr reg; strong pulses; trace edema noted to ble; sr on monitor; abd distended/ firm with bs present; no bm noted per clinical writer; no urine to inspect at this this time; bsc; #22 flushed and patent to rh; no redness or edema noted at site; generalized scabs noted to ble; pt states d/t "dueñas bites"; plan of care/ meds explained; call light within reach; will continue to monitor
--- NOTE | 2020-01-03 08:15 | NUR ---
awake in bed eating breakfast; no apparent distress noted; pt offers no complaints; iv intact; sr on monitor; call light within reach; will continue to monitor
--- NOTE | 2020-01-03 08:32 | NUR ---
Dr Wing present at bedside to assess pt and discuss plan of care
--- NOTE | 2020-01-03 08:50 | NUR ---
daughter Francheska Barnes called this abstract writer; unable to provide passcode; pt give this abstract writer permission to give information; update provided; will continue to monitor
--- NOTE | 2020-01-03 10:00 | NUR ---
awake in bed; no apparent distress noted; pt offers no complaints; iv intact and patent; sr on monitor; call light within reach; will continue to monitor
--- NOTE | 2020-01-03 11:01 | NUR ---
Dr Wing notified per this chief writer in regards to pt request for citalopram and spiriva; orders received and on chart
--- NOTE | 2020-01-03 12:02 | NUR ---
awake in bed eating lunch; no apparent distress noted; pt offers no complaints; denies needs to urinate; sr on monitor; iv intact; call light within reach; will continue to monitor
--- NOTE | 2020-01-03 14:37 | NUR ---
report given to Veronika Dunn LPN; pt to transfer to med surg tele 284
--- NOTE | 2020-01-03 14:40 | NUR ---
REPORT RECEIVED FROM MEAGHAN MILLER;PT TO BE TRANSPORTED TO MED/SURG ROOM 284.
--- NOTE | 2020-01-03 15:00 | NUR ---
PT ARRIVED TO MED/SURG ROOM 284 IN STABLE CONDITION VIA WHEELCHAIR ACCOMPANIED BY ANGELARN;PT ASSISTED TO BEDSIDE WITH X1 ASSIST;PT A&O X3,ORIENTED TO ROOM AND CALL LIGHT SYSTEM;WT AND VS OBTAINED;PT DENIES ANY CURRENT PAIN OR DISCOMFORTS,PAIN SCALE AND REPORTING EDUCATED;RESPIRATIONS EVEN AND UNLABORED ON O2 @ 2.5L VIA NC, EXERTIONAL SOB NOTED;ABDOMEN DISTENDED/FIRM ON PALPATION AND ACTIVE IN ALL 4 QUADRANTS;STRONG PEDAL PULSES;MULTIPLE HEALING SCABS NOTED THROUGHOUT BODY PT REPORTS "PRINGLE BITES";#22G TO RIGHT HAND FLUSHED AND PATENT,SITE APPEARS HEALTHY;ALLERGY AND FALL BAND IN PLACE;TELE MONITORING IN PLACE;FRESH WATER PROVIDED PER REQUEST;PT DENIES ANY ADDITIONAL NEEDS AND IS ENCOURAGED TO CALL FOR ASSISTANCE IF NEEDED;FALL PRECAUTIONS IN PLACE WITH BED IN THE LOWEST POSITION AND CALL LIGHT IN REACH;WILL CONTINUE TO MONITOR
--- NOTE | 2020-01-03 15:01 | NUR ---
pt transferred to med surg 284 via wc with portable o2 in stable condition; pt belongings sent with pt; bedside update provided to Veronika Dunn LPN
--- NOTE | 2020-01-03 16:20 | NUR ---
PT RESTING IN SEMI FOWLERS POSITION;RESPIRATIONS EVEN AND UNLABORED ON O2 @ 2.5L;PT DENIES ANY CURRENT PAIN OR NEEDS;TELE MONITORING IN PLACE;IV SITE PATENT;PT ENCOURAGED TO CALL FOR ASSISTANCE IF NEEDED;FALL PRECAUTIONS IN PLACE WITH CALL LIGHT IN REACH;WILL CONTINUE TO MONITOR
--- NOTE | 2020-01-03 21:08 | NUR ---
PT MEDICATED AND ASSSESSMENT COMPLETED AT THIS TIME. NO S/O DISTRESS NOTED. PT DENIES ANY NEEDS AT THIS TIME. SNACK AND DRINK OFFERED/DENIED. ICEWATER AT BEDSIDE.
[2020-01-04 00:15] VITALS: BP 115/64
[2020-01-04 00:30] VITALS: BP 115/64
--- NOTE | 2020-01-04 02:13 | NUR ---
PT IS SLEEPING, NO S/O DISTRESS NOTED. CALL LIGHT AT SIDE.
[2020-01-04 05:11] VITALS: BP 124/71
--- NOTE | 2020-01-04 05:20 | NUR ---
PT MEDICATED W/AM MEDICATION. SHE WAS SLEEPING, BUT AWOKE TO MY VOICE. NO S/O DISTRESS NOTED. PT REPORTED FEELING OKAY, ASKED FOR COFFEE, WILL PROVIDE.
--- NOTE | 2020-01-04 07:50 | NUR ---
PATIENT SITTING UP IN BED ALERT AND ORIENTED WATCHING TV. PATIENT DENIES ANY NEEDS AT THIS TIME. PATIENT SAFETY MEASURES IN PLACE CALL LIGHT WITHIN REACH SIDERAILS UP X2. PATIENT DENIES ANY PAIN. O2 IS ON CURRENTLY AT 2.5 LITERS. DENIES ANY SHORTNESS OF BREATH. PATIENT COUGH IS NON-PRODUCTIVE. PATIENT REMAINS IN ISOLATION AT THIS TIME.
[2020-01-04 07:54] VITALS: BP 122/80
[2020-01-04 11:07] LABS: ANION GAP 6 (6-22 (CALC)); BUN 16 mg/dL (8-23); BUN/CREATININE RATIO 21 (12-20 (CALC)); CARBON DIOXIDE 33 mmol/l (22-30); CHLORIDE 94 mmol/l (95-108); CREATININE 0.8 mg/dL (0.5-1.0); GFR > 60 ML/MIN (>=60 (CALC)); GFR FOR AFR.AMER. > 60 ML/MIN (>=60 (CALC)); POTASSIUM 3.6 mmol/l (3.5-5.1); SODIUM 129 mmol/l (137-146)
[2020-01-04 11:29] VITALS: BP 126/84
[2020-01-04] MEDS ORDERED: DOXYCYCL HYC100 MG PO (12:30)
--- NOTE | 2020-01-04 12:42 | NUR ---
PATIENT IN BED WATCHING TV DENIES ANY NEEDS AT THIS TIME. SAFETY MEASURES IN PLACE CALL LIGHT NEAR, SIDERAILS UP X 2. PATIENT DENIES ANY PAIN.
--- NOTE | 2020-01-04 12:50 | NUR ---
RT AT BEDSIDE OBTAINING EKG.
--- NOTE | 2020-01-04 14:50 | NUR ---
PATIENT D/C AT THIS TIME. 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 PATIENT VERBALIZED UNDERSTANDING.
--- NOTE | 2020-01-04 15:51 | NUR ---
Discharge instructions given. Patient verbalizes understanding of same. Discharged in stable condition via Wheelchair to Home with family. All belongings sent with pt.
== END 2020-01-04 15:51 | disposition home or self-care (01) | DRG 190 ==
LOC: ED 15:34 → ED-I 17:42 → ED 17:54 → ICU 17:55 → MS2 01-03 15:05
PROVIDERS: Emergency Medicine; Nurse Practitioner Family; Physician Assistant; ADMIT Internal Medicine; ATTEND Internal Medicine
DX: J43.9 Emphysema, unspecified (principal); J96.21 Acute and chronic respiratory failure with hypoxia; E87.1 Hypo-osmolality and hyponatremia; E87.6 Hypokalemia; I11.0 Hypertensive heart disease with heart failure; I50.9 Heart failure, unspecified; K21.9 Gastro-esophageal reflux disease without esophagitis; F32.9 Major depressive disorder, single episode, unspecified; F41.9 Anxiety disorder, unspecified; E78.5 Hyperlipidemia, unspecified; E03.9 Hypothyroidism, unspecified; R76.8 Other specified abnormal immunological findings in serum; Z99.81 Dependence on supplemental oxygen; Z20.828 Contact with and (suspected) exposure to other viral communicable diseases
CPT/HCPCS: J1650; J1956

== ENCOUNTER → 2020-03-19 | Day surgery (SDC) | payer OTHER ==
[~2020-03-19] VITALS: Ht 154.9 cm; Wt 74.8 kg
[~2020-03-19] MED LIST changes: +KLOR-CON M2020 MEQ PO; +MELOXICAM7.5 MG PO; +MIRTAZAPINE15 MG PO; +MOTRIN200 MG PO; -QMIIZ ODT15 MG PO
[2020-03-19 09:42] VITALS: BP 110/56
== END | disposition home or self-care (01) ==
LOC: ENDO 07:18 → ORM 08:30 → ENDO 08:45
PROVIDERS: ATTEND Surgery
DX: K44.9 Diaphragmatic hernia without obstruction or gangrene (principal); K29.80 Duodenitis without bleeding; K21.9 Gastro-esophageal reflux disease without esophagitis; J43.9 Emphysema, unspecified; F41.9 Anxiety disorder, unspecified; F32.9 Major depressive disorder, single episode, unspecified; Z20.822 Contact with and (suspected) exposure to COVID-19

== ENCOUNTER 2020-04-16 12:58 | Emergency (ER) | payer OTHER ==
[~2020-04-16] VITALS: Ht 154.9 cm; Wt 86.0 kg
[2020-04-16 13:49] LABS: HEMATOCRIT 33.5 % (37.0-47.0); HEMOGLOBIN 10.3 g/dl (12.0-16.0); IMMATURE GRANULOCYTES 0.3 % (0.0-5.0); MEAN CELL VOLUME 81.7 fL CALC (80.0-100.0); MEAN CORPUSCULAR HGB 25.1 pG CALC (26.0-32.0); MEAN CORPUSCULAR HGB CONC 30.7 g/dL CAL (32.0-36.0); NEUT# 5.1 thou/uL (2.00-7.15); RED BLOOD COUNT 4.1 mill/uL (4.20-5.60); RED CELL DISTRI WIDTH 17.9 % (11.5-15.5)
[2020-04-16 14:03] LABS: URINE BILIRUBIN - DIPSTICK NEGATIVE (NEGATIVE); URINE BLOOD DIPSTICK NEGATIVE (NEGATIVE); URINE COLOR YELLOW; URINE GLUCOSE - DIPSTICK NEGATIVE (NEGATIVE); URINE KETONE NEGATIVE (NEGATIVE); URINE LEUK ESTERASE NEGATIVE (NEGATIVE); URINE NITRITE - DIPSTICK NEGATIVE (Negative); URINE PH 5.5 (4.5-8.0); URINE PROTEIN - DIPSTICK NEGATIVE (NEG-TRACE); URINE UROBILINOGEN - DIPSTICK 0.2 E.U./dL (0.2)
[2020-04-16 14:07] LABS: ALBUMIN 4.8 g/dL (3.2-5.0); ALKALINE PHOSPHATASE 112 u/l (38-126); ANION GAP 11 (6-22 (CALC)); BILIRUBIN, TOTAL 0.6 mg/dL (0.0-1.4); BUN 41 mg/dL (8-23); BUN/CREATININE RATIO 18 (12-20 (CALC)); CARBON DIOXIDE 35 mmol/l (22-30); CHLORIDE 93 mmol/l (95-108); CREATININE 2.2 mg/dL (0.5-1.0); GFR 23 ML/MIN (>=60 (CALC)); GFR FOR AFR.AMER. 27 ML/MIN (>=60 (CALC)); POTASSIUM 4.1 mmol/l (3.5-5.1); SGOT/AST 38 u/l (9-36); SODIUM 135 mmol/l (137-146); TOTAL PROTEIN 7.8 g/dL (6.3-8.2)
[2020-04-16 14:17] LABS: MYOGLOBIN 94 ng/mL (0 - 62)
[2020-04-16] MEDS ORDERED: MEDDOSEPAK PO (15:11)
[2020-04-16] MEDS ORDERED: ZPAK PO (15:11)
[2020-04-16 16:26] VITALS: BP 139/78
== END 2020-04-16 17:10 | disposition home or self-care (01) ==
LOC: ED 12:58
PROVIDERS: Emergency Medicine
DX: J43.9 Emphysema, unspecified (principal); K21.9 Gastro-esophageal reflux disease without esophagitis; F32.9 Major depressive disorder, single episode, unspecified; F41.9 Anxiety disorder, unspecified; Z20.822 Contact with and (suspected) exposure to COVID-19; M54.5 Low back pain

== ENCOUNTER 2020-05-21 00:35 | Inpatient (IN) | payer OTHER ==
[~2020-05-21] VITALS: Ht 154.9 cm; Wt 79.6 kg
[~2020-05-21 00:35] MED LIST changes: -KLOR-CON M2020 MEQ PO; +POTASSIUM CHLO10 MEQ PO; +SPIRONOLACT100 MG PO; -SPIRONOLACT25 MG PO; +ZPAK PO
--- NOTE | 2020-05-21 00:35 | NUR ---
TO ROOM 9 VIA EMS
--- NOTE | 2020-05-21 00:37 | NUR ---
TALKING AND LAUGHING WITH EMS. NO DISTRESS NOTED. STATES BREATHING IMPROVED SINCE TAKING HOME INHALER AND NEB TX. CONT CONT BACK PAIN WITH BREATHING (HX COMPRESSION FX)
--- NOTE | 2020-05-21 01:05 | NUR ---
PT ALERT AND ORIENTED SATETS THAT SHE HAS HAD WORSENIGN SOB FOR LAST 3 DAYS, LUNGS VERY DIMINSHED WITH WHEEZES, SOB WITH EXERTION NOTED, PT HAS O2 ON AT 3L VIA NC, WITH PT BEING O2 DEPENDENT AT HOME WELL. PT STATES SHE IS BREATHING A LITTLE BETTER SINCE SHE DID HOME NEB TX AND INHALER BUT THAT SHE STILL SOB WITH EXERTION AND HER CHEST STILL HURTS WITH INSPIRATION AND EXPIRATION, THE PAIN IS MIDSTERNAL AND RADIATES UNDER BREASTS AND AT TIMES THRU TO BACK.
[2020-05-21 01:31] LABS: HEMOGLOBIN 9.4 g/dl (12.0-16.0); IMMATURE GRANULOCYTES 0.3 % (0.0-5.0); MEAN CELL VOLUME 80.7 fL CALC (80.0-100.0); MEAN CORPUSCULAR HGB 24.5 pG CALC (26.0-32.0); MEAN CORPUSCULAR HGB CONC 30.3 g/dL CAL (32.0-36.0); NEUT# 7.29 thou/uL (2.00-7.15); RED BLOOD COUNT 3.84 mill/uL (4.20-5.60); RED CELL DISTRI WIDTH 17.4 % (11.5-15.5)
[2020-05-21 01:52] LABS: ALBUMIN 4.4 g/dL (3.2-5.0); ALKALINE PHOSPHATASE 135 u/l (38-126); ANION GAP 20 (6-22 (CALC)); BILIRUBIN, TOTAL 0.5 mg/dL (0.0-1.4); BUN 48 mg/dL (8-23); BUN/CREATININE RATIO 14 (12-20 (CALC)); CARBON DIOXIDE 22 mmol/l (22-30); CHLORIDE 89 mmol/l (95-108); CREATININE 3.5 mg/dL (0.5-1.0); GFR 13 ML/MIN (>=60 (CALC)); GFR FOR AFR.AMER. 16 ML/MIN (>=60 (CALC)); POTASSIUM 4.2 mmol/l (3.5-5.1); SGOT/AST 32 u/l (9-36); SODIUM 127 mmol/l (137-146); TOTAL PROTEIN 7.4 g/dL (6.3-8.2)
[2020-05-21 01:54] LABS: PROTHROMBIN TIME 10.6 SECONDS (9.0-12.5)
[2020-05-21 02:02] LABS: D-DIMER 1.47 mg/L (0.19-0.60)
[2020-05-21 02:04] LABS: MYOGLOBIN 285 ng/mL (0 - 62)
--- NOTE | 2020-05-21 02:05 | NUR ---
PT RESTING NO NEW COMPLAINTS OFFERED, PT REMAINS WINDED WITH MINIMAL EXERTION BUT RECOVERS WELL WITH REST, SATS2 REMAIN 100% ON 3L. WILL CONTINUE TO MONITOR
--- NOTE | 2020-05-21 02:45 | NUR ---
PT ASSISTED OOB TO BSC, LINENS CHANGED ON BED, AND PT TOLERATED TRASNFER WELL.
--- NOTE | 2020-05-21 02:54 | NUR ---
PT BACK TO BED, URINE COLLECTED AND SENT ORDERED, B/P REMAINS STABLE AND SATS 100% ON 3L NC.
--- NOTE | 2020-05-21 02:57 | NUR ---
PT RESTING BACK TO BED WITH SBA, NO CHANGE FROM PREVIOUS ASSESSMENT, WILL CONTINUE TO MONITOR.
[2020-05-21 03:05] LABS: URINE BILIRUBIN - DIPSTICK NEGATIVE (NEGATIVE); URINE BLOOD DIPSTICK TRACE-LYSED (NEGATIVE); URINE COLOR YELLOW; URINE GLUCOSE - DIPSTICK NEGATIVE (NEGATIVE); URINE KETONE NEGATIVE (NEGATIVE); URINE PH 5.5 (4.5-8.0); URINE PROTEIN - DIPSTICK TRACE mg/dL (NEG-TRACE); URINE UROBILINOGEN - DIPSTICK 0.2 E.U./dL (0.2)
[2020-05-21 03:08] LABS: URINE LEUK ESTERASE SMALL (NEGATIVE); URINE NITRITE - DIPSTICK NEGATIVE (Negative)
[2020-05-21 03:17] LABS: URINE BACTERIA FEW hpf; URINE SQUAMOUS EPITHELIAL CELL FEW EPI/hpf (0-FEW); URINE WBC 20-50 WBC/hpf (0-5)
--- NOTE | 2020-05-21 03:40 | NUR ---
PT AWARE OF PLANNED ADMISSION,
--- NOTE | 2020-05-21 04:13 | NUR ---
PT RESTING AWARE OF PLANNED ADMISSION NO NEW COMPLAINTS OFFERED, CALL HILLIARD WITHIN REACH
--- NOTE | 2020-05-21 04:27 | NUR ---
ATTEMPTED TO CALL REPORT TO FLOOR NURSE TO CALL BACK.
--- NOTE | 2020-05-21 04:52 | NUR ---
REPORT CALLED TO JOHANN ON MED SURG.
--- NOTE | 2020-05-21 05:03 | NUR ---
PT TRANSFERRED TO MED SURG VIA WHEELCHAIR WITH ALL BELONGINGS SENT WITH PATIENT. NO TELE ORDERED.
[2020-05-21 05:05] VITALS: BP 151/93
--- NOTE | 2020-05-21 06:45 | NUR ---
PT HAD DUONEB AND ALBUTEROL ON EMAR SINCE 99. DAYSHIFT RT DOCUMENTED OFF ON THE LATE MEDS, WAS TO BE ADMINISTERED BY NIGHTSHIFT, OR CANCELED BY NIGHTSHIFT.
--- NOTE | 2020-05-21 07:15 | NUR ---
PT ARRIVED TO THE UNIT VIA WHEELCHAIR TRANSPORT. ALERT AND ORIENTED AND ABLE TO MAKE NEEDS KNOWN. EXPIRATORY WHEEZING NOTED IN ALL LUNG WAGGONER. O2 APPLIED AT 3LNC AND SITTING UP IN BED WITH NO DISTRESS NOTED. COMPLAINS OF MILD PAIN TO DIAPHRAGM AREA AND STATES ITS FROM HER COMPRESSION FRACTURES. CONTINENT OF B/B AND USES THE BSC WITH STANDBY ASSIST. CALL LIGHT WITHIN REACH. WILL CONTINUE TO OBSERVE
[2020-05-21 07:35] VITALS: BP 108/75
--- NOTE | 2020-05-21 08:00 | NUR ---
PT RESTING IN THE BED AXOX3, [address], DENIES PAIN. REPOSITIONED FOR COMFORT, SIDE RAILS UP CALL LIGHT IN REACH, ALL SAFTY MEASURES IN PLACE WILL CONTINUE TO MONIOTR THE PATIENT.
--- NOTE | 2020-05-21 13:09 | NUR ---
PT RESTING IN THE BED, STATES PAIN "IS GOING AWAY" . CALL LIGHT IN REACH NO DISTRESS NOTED AT THIS TIME.
--- NOTE | 2020-05-21 14:51 | NUR ---
PT RESTING WELL. NAD. VSS. NO ACUTE DISTRESS NOTED.
[2020-05-21 15:00] VITALS: BP 114/78
--- NOTE | 2020-05-21 16:57 | NUR ---
PT RESTING IN THE BED STATES SHE HAS NO PAIN AT THIS TIME. WILL CONTINUE TO MONITOR THE PATIENT.
[2020-05-21 19:00] VITALS: BP 118/78
--- NOTE | 2020-05-21 19:46 | NUR ---
RECEIVED REPORT FOR THIS PT AND IN BED WITH EYES CLOSED. NO S/S OF DISTRESS NOTED. WILL CONTINUE TO OBSERVE
--- NOTE | 2020-05-22 02:49 | NUR ---
PT IN BED WITH EYES CLOSED. NO S/S OF DISTRESS. RESPIRATION EVEN AND NON LABORED. UP TO BSC WITH 1 PERSON STANDBY ASSIST. MEDICATION GIVEN AND TOLERATED WELL. NORMAL SALINE RUNNING AT 50ML/HR AND TOLERATING WELL. PT HAS NON PRODUCTIVE COUGH NOTED. DENIES PAIN AND DISCOMFORT. CALL LIGHT IS WITHIN REACH. WILL CONTINUE TO OBSERVE
[2020-05-22 04:00] VITALS: BP 111/63
[2020-05-22 05:46] LABS: HEMATOCRIT 31.6 % (37.0-47.0); HEMOGLOBIN 9.4 g/dl (12.0-16.0); IMMATURE GRANULOCYTES 0.4 % (0.0-5.0); MEAN CELL VOLUME 82.5 fL CALC (80.0-100.0); MEAN CORPUSCULAR HGB 24.5 pG CALC (26.0-32.0); MEAN CORPUSCULAR HGB CONC 29.7 g/dL CAL (32.0-36.0); NEUT# 8.24 thou/uL (2.00-7.15); RED BLOOD COUNT 3.83 mill/uL (4.20-5.60); RED CELL DISTRI WIDTH 17.2 % (11.5-15.5)
[2020-05-22 06:06] LABS: POTASSIUM 4.6 mmol/l (3.5-5.1)
--- NOTE | 2020-05-22 06:30 | NUR ---
PT RESTING COMFORTABLY. NAD. VSS.
[2020-05-22 07:00] VITALS: BP 113/78
--- NOTE | 2020-05-22 08:09 | NUR ---
SHIFT CHANGE REPORT, PT AWAKE ALERT AND ORIENTED SITTING UP AT BEDSIDE, NO C/O DISCOMFORT, IVF INFUSING, CALL HILLIARD IN REACH.
--- NOTE | 2020-05-22 12:00 | NUR ---
RELAXING IN BED, MEDICAL TEAM ROUNDED AND DISCUSED POC, ALL NEEDS ADDRESSED.
[2020-05-22 15:10] VITALS: BP 115/69
[2020-05-22 19:45] VITALS: BP 114/84
--- NOTE | 2020-05-23 01:09 | NUR ---
PATIENT CURRENTLY RESTING WITH EYES CLOSED. RESPRIATIONS EVEN O2M2L N/C.. C/O PAIN ADDRESSED WITH PRN MORPHINE. VAD INFUSING NS AT 50ML/HR. TOLERATTING OK. FALL PRECAUTIONS IN PLACE. BED IN LOW POSITION. CALL LIGHT IN REACH.
[2020-05-23 04:00] VITALS: BP 160/87
[2020-05-23 06:22] LABS: HEMATOCRIT 31.9 % (37.0-47.0); HEMOGLOBIN 9.2 g/dl (12.0-16.0); MEAN CELL VOLUME 83.9 fL CALC (80.0-100.0); MEAN CORPUSCULAR HGB 24.2 pG CALC (26.0-32.0); MEAN CORPUSCULAR HGB CONC 28.8 g/dL CAL (32.0-36.0); RED BLOOD COUNT 3.8 mill/uL (4.20-5.60); RED CELL DISTRI WIDTH 17.2 % (11.5-15.5)
[2020-05-23 06:49] LABS: ALBUMIN 4.2 g/dL (3.2-5.0); CREATININE 1.2 mg/dL (0.5-1.0); MAGNESIUM 2.4 mg/dL (1.6-2.3); POTASSIUM 4.4 mmol/l (3.5-5.1)
--- NOTE | 2020-05-23 07:19 | NUR ---
PT RESTING COMFORTABLY IN BED. ASLEEP. NAD. VSS. CAP SIZER TO MONITOR.
[2020-05-23 08:00] VITALS: BP 142/72
--- NOTE | 2020-05-23 08:00 | NUR ---
PT RESTING IN THE BED, AXOX3 NOTED LABOURED BREATHING. PT GIVEN INHALER TO USE. DENIES PAIN AT THIS TIME. REPOSITIOEND FOR COMFORT, SIDE RAILS UP CALL LIGHT IN REACH BED LOCKED IN LOW POSITION, WILL CONTINUE TO MONITOR THE PATIENT.
--- NOTE | 2020-05-23 09:58 | NUR ---
MD AT THE BEDSIDE , INSTRUCTED THE PATIENT SHE WILL BE DISCHARGED TO HOME TODAY. NO SOB OR RESP DISTRESS NOTED AT THIS TIME.
--- NOTE | 2020-05-23 12:23 | NUR ---
PT RESTING ON THE SIDE OF THE BED NO DISTRESS NOTED AT THIS TIME.
[2020-05-23] MEDS ORDERED: MEDDOSEPAK PO (12:40)
[2020-05-23] MEDS ORDERED: ZPAK PO (12:40)
--- NOTE | 2020-05-23 12:40 | NUR ---
REQUEST A BREATHING TREATMENT FOR PT, STATES SHE IS SHORT OF BREATH. US PAGE RESP.
--- NOTE | 2020-05-23 13:13 | NUR ---
PT UPSET SHE DID NOT RECEIVE HER BREATHING TREATMENT. TRACK LAYER HEAD IN TO SEE THE PT. THIS NURSE IS GIVING THE PT HER BREATHING TREATMENT.
--- NOTE | 2020-05-23 14:26 | NUR ---
PT HAS A DISCHAGRE ORDER. STATES SHE FEELS BETTER AFTER HAVING A BREATHING TREATMENT. H.L. REMOVED TIP INTACT.
--- NOTE | 2020-05-23 15:14 | NUR ---
DISCHARGE ORDERS GIVEN UNDERSTOOD AND SIGNED BY THE PT, PT LEFT TO GO TO HER OWN HOME, WITH HER OWN O2.
--- NOTE | 2020-05-26 10:47 | NUR ---
Pneumonia post discharge call completed today, 05/26/20. Pt. has been admitted to hospital in [place] since discharge from [facility].
== END 2020-05-23 14:43 | disposition home or self-care (01) | DRG 190 ==
LOC: ED 00:35 → ED-I 03:20 → ED 03:31 → MS2 03:32
PROVIDERS: Family Medicine; Internal Medicine Nephrology; Nurse Practitioner; ADMIT Internal Medicine; ATTEND Internal Medicine
DX: J43.9 Emphysema, unspecified (principal); J96.21 Acute and chronic respiratory failure with hypoxia; E87.1 Hypo-osmolality and hyponatremia; N17.9 Acute kidney failure, unspecified; I13.0 Hypertensive heart and chronic kidney disease with heart failure and stage 1 through stage 4 chronic kidney disease, or unspecified chronic kidney disease; N39.0 Urinary tract infection, site not specified; N18.30 Chronic kidney disease, stage 3 unspecified; I50.9 Heart failure, unspecified; E87.8 Other disorders of electrolyte and fluid balance, not elsewhere classified; E86.9 Volume depletion, unspecified; J45.909 Unspecified asthma, uncomplicated; D63.1 Anemia in chronic kidney disease; E78.5 Hyperlipidemia, unspecified; F32.9 Major depressive disorder, single episode, unspecified; F41.9 Anxiety disorder, unspecified; K21.9 Gastro-esophageal reflux disease without esophagitis; Z99.81 Dependence on supplemental oxygen; Z20.822 Contact with and (suspected) exposure to COVID-19
CPT/HCPCS: A9540; J1650; J1756; Q5106 EC